=== PATIENT | male | born 1970 | race Caucasian/White ===

== ENCOUNTER 2020-01-04 17:07 | Emergency (ER) | payer OTHER, SELFPAY ==
[2020-01-04 17:35] VITALS: BP 128/76; BP 147/101; PULSE 102; PULSE 107; RESP 20; TEMP 37.6; O2SAT 98; BMI 25.8
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
[2020-01-04 18:56] VITALS: BP 116/57; PULSE 83; RESP 16; TEMP 36.9; O2SAT 99
[2020-01-04 20:00] VITALS: BP 118/83; PULSE 74; RESP 16; TEMP 37; O2SAT 99
--- NOTE | 2020-01-04 20:25 | PC.NURSE ---
PT GIVEN SANDWICH IN NAD AT THIS TIME. PENDING D.C HOME
--- NOTE | 2020-01-04 20:33 | PC.NURSE ---
PT TO BE D/C
== END 2020-01-04 20:49 | disposition home or self-care (01) ==
PROVIDERS: Emergency Provider Emergency Medicine; PCP Internal Medicine
DX: T50.901A Poisoning by unspecified drugs, medicaments and biological substances, accidental (unintentional), initial encounter (principal); Y92.59 Other trade areas as the place of occurrence of the external cause
CPT/HCPCS: 99283; 99284

== ENCOUNTER 2020-08-27 18:08 | Emergency (ER) | payer OTHER, SELFPAY ==
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
[2020-08-27 18:16] VITALS: BP 135/87; PULSE 107; RESP 16; TEMP 37; O2SAT 98; BMI 25.8
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
[2020-08-27] MEDS: iohexoL 350 MG/ML 100 ML INFUS..BTL IV (18:40)
[2020-08-27] MEDS: 0.9 % Sodium Chloride 1,000 ML 999 ML IVCONT (18:42)
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
[2020-08-27] MEDS: ondansetron HCL 4 MG/2 ML VIAL IVPUSH (18:45)
[2020-08-27] MEDS: Morphine Sulfate 4 MG/ML CARTRIDGE IVPUSH (18:45)
== END 2020-08-27 19:00 | disposition short-term general hospital (02) ==
PROVIDERS: Emergency Provider Internal Medicine; PCP Internal Medicine
DX: S31.611A Laceration without foreign body of abdominal wall, left upper quadrant with penetration into peritoneal cavity, initial encounter (principal); S22.32XA Fracture of one rib, left side, initial encounter for closed fracture; X99.1XXA Assault by knife, initial encounter; Y93.9 Activity, unspecified; Y92.414 Local residential or business street as the place of occurrence of the external cause; Y99.9 Unspecified external cause status
CPT/HCPCS: 12002; 71045; 71260; 74177; 96361; 96374; 96375; 99282; 99291; J2270; J2405; Q9967

== ENCOUNTER 2020-12-10 15:54 | Emergency (ER) | payer OTHER, SELFPAY ==
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
[2020-12-10 16:53] VITALS: BP 121/66; PULSE 107; RESP 20; TEMP 37; O2SAT 96; BMI 25.8
[2020-12-10] MEDS: Acetaminophen 325 MG TABLET 650 MG PO (17:01)
[2020-12-10 21:21] LABS: MANUAL DIFF FLAG NO
[2020-12-10 21:32] LABS: Basophils Absolute Auto 0.1 X10*3/uL (0.0-0.2); Basophils Percent Auto 0.4 % (0-2); Eosinophils Absolute Auto 0.1 X10*3/uL (0.0-0.4); Eosinophils Percent Auto 0.3 % (0-4); Hemoglobin 16.9 g/dl (14.0-18.0); Imm Gran Pct Auto 0.5 % (0.0-0.4); Lymphocytes Absolute Auto 3.1 X10*3/uL (1.2-4.9); Mean Corpuscular HGB Conc 33.8 g/dl (31.0-36.0); Mean Corpuscular Hemoglobin 28.5 pg (27.0-33.0); Mean Corpuscular Volume 84.2 fL (80-98); Monocytes Absolute Auto 1.3 X10*3/uL (0.1-1.2); Monocytes Percent Auto 6.8 % (2-11); Neutrophils Absolute Auto 14.5 X10*3/uL (2.0-8.3); Platelet Count 358 X10*3/uL (160-400); Red Blood Count 5.94 X10*6/uL (4.60-5.80); Red Cell Distribution Width 15.7 % (11.0-16.0); White Blood Count 19.1 X10*3/uL (4.8-10.8)
[2020-12-10 21:46] LABS: Alanine Aminotransferase 31 U/L (0-40); Alkaline Phosphatase 82 U/L (39-117); Anion Gap 14 (12-20); Aspartate Amino Transferase 20 U/L (5-37); Bilirubin Total 1.5 mg/dL (0.0-1.0); Blood Urea Nitrogen 24 mg/dL (9-16); Calcium 9.7 mg/dL (8.4-10.2); Carbon Dioxide 26 mmol/L (22-29); Chloride 103 mmol/L (96-108); Creatinine Clr Calc Pharmacy 66.2; Estimated Glomerular Filt Rate 59; Glucose Random 89 mg/dL (60-115); Potassium 4.2 mmol/L (3.3-5.1); Sodium 139 mmol/L (135-145); Total Protein 6.9 g/dL (6.5-8.0)
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
[2020-12-10] MEDS: iohexoL 350 MG/ML 100 ML INFUS..BTL IV (22:29)
[2020-12-10] MEDS: Famotidine/PF 20 MG/2 ML VIAL IVPUSH (22:31)
[2020-12-10] MEDS: diphenhydrAMINE HCL 50 MG/ML VIAL IVPUSH (22:31)
[2020-12-10] MEDS: methylPREDNISolone Sod Succ 125 MG/2 ML VIAL IVPUSH (22:31)
--- NOTE | 2020-12-10 22:43 | PC.NURSE ---
pt had reaction from IV contrast medication order pt placed on O2 monitor and will be moved to main ed for epi. .
[2020-12-10 22:48] VITALS: BP 130/68; PULSE 78; RESP 16; O2SAT 98
[2020-12-10 22:56] VITALS: BP 146/93; PULSE 79; RESP 18; TEMP 36.6; O2SAT 98
[2020-12-10] MEDS: EPINEPHrine 1 MG/ML VIAL 0.3 MG IM (22:56)
--- NOTE | 2020-12-10 23:04 | PC.NURSE ---
PT MOVED TO MAIN ED TO BE GIVEN EPI-PEN PT PLACED ON MONITOR REPORT GIVEN TO ARTURO MONET.
[2020-12-10] MEDS: oxyCODONE HCl Immed Release 5 MG TABLET PO (23:51)
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
[2020-12-11 00:15] LABS: Appearance Urine CLEAR; Color Urine YELLOW; Glucose Urine UA NEG (NEG); Leukocyte Esterase Urine NEG (NEG); Nitrite Urine NEG (NEG); UACC Culture Trigger NO; Urine Blood TRACE (NEG); Urine Ketones NEG (NEG); Urine Protein NEG (NEG-TRACE)
[2020-12-11 00:20] VITALS: BP 129/72; PULSE 80; RESP 16; O2SAT 92
[2020-12-11 00:28] LABS: Bacteria Urine 1+ /LPF; Calcium Oxalate Crystals Urine 1+ /LPF; Squamous Epithelial Cell Urine 1+ /LPF
[2020-12-11 01:59] VITALS: BP 143/79; PULSE 78; RESP 20; TEMP 36.7; O2SAT 97
== END 2020-12-11 02:32 | disposition home or self-care (01) ==
PROVIDERS: Physician Assistant; Emergency Provider Emergency Medicine Emergency Medical Services; PCP Internal Medicine
DX: S10.0XXA Contusion of throat, initial encounter (principal); M54.2 Cervicalgia; G44.309 Post-traumatic headache, unspecified, not intractable; M79.642 Pain in left hand; R07.81 Pleurodynia; F11.90 Opioid use, unspecified, uncomplicated; Y04.8XXA Assault by other bodily force, initial encounter; Y93.9 Activity, unspecified; Y92.9 Unspecified place or not applicable; Y99.9 Unspecified external cause status; Z79.899 Other long term (current) drug therapy
CPT/HCPCS: 36415; 70450; 70498; 71101; 73110; 73130; 80053; 81001; 85025; 96372; 96374; 96375; 99284; J0171; J1200; J2930; Q9967

== ENCOUNTER 2020-12-11 08:21 | Inpatient (IN) | payer OTHER, SELFPAY ==
[2020-12-11 08:22] VITALS: BP 142/89; PULSE 70; RESP 18; TEMP 36.6; O2SAT 99; BMI 25.8
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
[2020-12-11 09:20] LABS: COVID-19 Test Negative (Negative); IDNOW Serial# 9DD0AD1C
[2020-12-11 09:30] LABS: MANUAL DIFF FLAG NO
[2020-12-11 09:38] LABS: Appearance Urine CLEAR; Color Urine YELLOW; Glucose Urine UA NEG (NEG); Leukocyte Esterase Urine NEG (NEG); Nitrite Urine NEG (NEG); Specific Gravity - Urine 1.025 (1.005-1.025); UACC Culture Trigger NO; Urine Blood TRACE (NEG); Urine Ketones NEG (NEG); Urine Protein TRACE MG/DL (NEG-TRACE)
[2020-12-11 09:41] LABS: Basophils Percent Auto 0.1 % (0-2); Hematocrit 51.6 % (42-52); Hemoglobin 17.1 g/dl (14.0-18.0); Imm Gran Abs Auto 0.06 X10*3/uL (0.00-0.03); Imm Gran Pct Auto 0.4 % (0.0-0.4); Lymphocytes Absolute Auto 1.1 X10*3/uL (1.2-4.9); Lymphocytes Percent Auto 8.1 % (20-40); Mean Corpuscular HGB Conc 33.1 g/dl (31.0-36.0); Mean Corpuscular Hemoglobin 28.2 pg (27.0-33.0); Mean Platelet Volume 9.6 fL (9.4-12.4); Monocytes Absolute Auto 0.2 X10*3/uL (0.1-1.2); Monocytes Percent Auto 1.6 % (2-11); Neutrophils Absolute Auto 12.6 X10*3/uL (2.0-8.3); Neutrophils Percent Auto 89.8 % (45-73); Platelet Count 355 X10*3/uL (160-400); Red Blood Count 6.07 X10*6/uL (4.60-5.80); Red Cell Distribution Width 15.8 % (11.0-16.0)
[2020-12-11 09:42] LABS: Ethanol < 10 mg/dL
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
[2020-12-11 09:45] LABS: Mucus Urine TRACE /LPF
[2020-12-11 09:46] LABS: Alanine Aminotransferase 29 U/L (0-40); Albumin Level 4.3 g/dL (3.5-5.0); Alkaline Phosphatase 88 U/L (39-117); Anion Gap 11 (12-20); Aspartate Amino Transferase 12 U/L (5-37); Bilirubin Direct 0.3 mg/dL (0.0-0.5); Bilirubin Total 0.8 mg/dL (0.0-1.0); Blood Urea Nitrogen 22 mg/dL (9-16); Calcium 10.2 mg/dL (8.4-10.2); Carbon Dioxide 29 mmol/L (22-29); Chloride 103 mmol/L (96-108); Creatinine Clr Calc Pharmacy 63.8; Estimated Glomerular Filt Rate 56; Glucose Random 147 mg/dL (60-115); Potassium 5.4 mmol/L (3.3-5.1); Sodium 138 mmol/L (135-145); Total Protein 7.3 g/dL (6.5-8.0)
[2020-12-11 09:48] LABS: RBC Urine 0-2 /HPF (0); WBC Urine 0 /HPF (0-4)
[2020-12-11 10:03] LABS: Amphetamine Screen Urine Not Detected (Not Detect); Barbiturates, Urine Not Detected (Not Detect); Benzodiazepines Screen Urine Not Detected (Not Detect); Cannabinoid Screen Urine Not Detected (Not Detect); Cocaine Screen Urine POSITIVE (Not Detect); Opiate Screen Urine Not Detected (Not Detect); Phencyclidine Screen Urine Not Detected (Not Detect)
[2020-12-11 10:05] LABS: Fentanyl, urine Not Detected (Not Detect)
[2020-12-11] MEDS: Ibuprofen 600 MG TABLET PO (11:55)
--- NOTE | 2020-12-11 12:52 | PHA.MEDREC ---
Pharmacy Consult ? Medication Reconciliation Pharmacy has completed the medication reconciliation. Patient report taking clonidne and trazodone as needed, there is no recent filled history. He was prescribe diphenhydramine, famotidine, prednisone and naproxen here in the ED Mai Hemphill, LiviaD
[2020-12-11 13:14] VITALS: PULSE 72; RESP 16; O2SAT 95
[2020-12-11 23:38] VITALS: BP 129/75; PULSE 93; RESP 18; TEMP 36.9; O2SAT 98
[2020-12-12 05:15] VITALS: BP 171/96; PULSE 85; RESP 18; TEMP 36.1; O2SAT 97
[2020-12-12 06:00] VITALS: BP 171/96; PULSE 85; RESP 18; TEMP 36.1; O2SAT 97
[2020-12-12 06:21] VITALS: BMI 24.3
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
[2020-12-12 07:00] VITALS: BMI 24.3
[2020-12-12 09:30] VITALS: BP 140/86; PULSE 88; RESP 16; TEMP 37; O2SAT 97
--- NOTE | 2020-12-12 14:03 | P.PNPSI_ITS ---
Subjective Subjective Date of Service: 12/12/20 Reason For Visit: crisis Diagnostics Vital Signs (24Hr): Vital Signs - 24 hr 12/11/20 23:38 12/12/20 05:15 12/12/20 06:00 Temperature 98.4 F 96.9 F 96.9 F Pulse Rate 93 85 85 Respiratory Rate 18 18 18 Blood Pressure 129/75 171/96 H 171/96 H Pulse Oximetry 98 97 97 12/12/20 09:30 Temperature 98.6 F Pulse Rate 88 Respiratory Rate 16 Blood Pressure 140/86 H Pulse Oximetry 97 Body Mass Index 24.3 Labs Results: 12/11/20 09:26 12/11/20 09:26 Labs: Laboratory Results - last 48 hr 12/11/20 12/11/20 12/11/20 08:59 09:26 09:26 WBC 14.0 H RBC 6.07 H Hgb 17.1 Hct 51.6 MCV 85.0 MCH 28.2 MCHC 33.1 RDW 15.8 Plt Count 355 MPV 9.6 Immature Gran % (Auto) 0.4 Neut % (Auto) 89.8 H Lymph % (Auto) 8.1 L [place] % (Auto) 1.6 L Eos % (Auto) 0.0 Baso % (Auto) 0.1 Lymph # (Auto) 1.1 L [place] # (Auto) 0.2 Eos # (Auto) 0.0 Baso # (Auto) 0.0 Abs Immat Gran (auto) 0.06 H Absolute Neuts (auto) 12.6 H Absolute Nucleated RBC 0.000 Nucleated RBC % (auto) 0.0 Sodium 138 Potassium 5.4 H D Chloride 103 Carbon Dioxide 29 Anion Gap 11 L BUN 22 H Creatinine 1.34 Estim Creat Clear Calc 63.8 Estimated GFR 56 Random Glucose 147 H D Calcium 10.2 Total Bilirubin 0.8 Direct Bilirubin 0.3 AST 12 ALT 29 Alkaline Phosphatase 88 Total Protein 7.3 Albumin 4.3 Urine Color Urine Appearance Urine pH Ur Specific [place] Urine Protein Urine Glucose (UA) Urine Ketones Urine Blood Urine Nitrite Ur Leukocyte Esterase Urine RBC Urine WBC Ur Squamous Epith Cells Urine Bacteria Urine Mucus Urine Opiates Screen Urine Fentanyl Screen Ur Barbiturates Screen Ur Phencyclidine Scrn Ur Amphetamines Screen U Benzodiazepines Scrn Urine Cocaine Screen U Marijuana (THC) Screen Ethyl Alcohol COVID-19 ([facility]) Negative COVID-19 Clin Com See Note 12/11/20 12/11/20 12/11/20 09:26 09:32 09:32 WBC RBC Hgb Hct MCV MCH MCHC RDW Plt Count MPV Immature Gran % (Auto) Neut % (Auto) Lymph % (Auto) [place] % (Auto) Eos % (Auto) Baso % (Auto) Lymph # (Auto) [place] # (Auto) Eos # (Auto) Baso # (Auto) Abs Immat Gran (auto) Absolute Neuts (auto) Absolute Nucleated RBC Nucleated RBC % (auto) Sodium Potassium Chloride Carbon Dioxide Anion Gap BUN Creatinine Estim Creat Clear Calc Estimated GFR Random Glucose Calcium Total Bilirubin Direct Bilirubin AST ALT Alkaline Phosphatase Total Protein Albumin Urine Color YELLOW Urine Appearance CLEAR Urine pH 6.0 Ur Specific [place] 1.025 Urine Protein TRACE Urine Glucose (UA) NEG Urine Ketones NEG Urine Blood TRACE Urine Nitrite NEG Ur Leukocyte Esterase NEG Urine RBC 0-2 Urine WBC 0 Ur Squamous Epith Cells NONE Urine Bacteria NONE Urine Mucus TRACE Urine Opiates Screen Not Detected Urine Fentanyl Screen Not Detected Ur Barbiturates Screen Not Detected Ur Phencyclidine Scrn Not Detected Ur Amphetamines Screen Not Detected U Benzodiazepines Scrn Not Detected Urine Cocaine Screen POSITIVE H U Marijuana (THC) Screen Not Detected Ethyl Alcohol < 10 COVID-19 ([facility]) COVID-19 Clin Com Medications Medications Current Medications Acetaminophen (Acetaminophen 325 Mg Tablet) 650 mg PO Q6H PRN PRN Reason: Headache/Pain Mild Scale (1-3) Al Hydroxide/Mg Hydroxide (Magnesium Hydrox/Alum Hydrox 30 Ml Oral.Susp) 30 ml PO Q6H PRN PRN Reason: Heartburn/Nausea Clonidine HCl (Clonidine Hcl 0.1 Mg Tablet) 0.1 mg PO TID PRN; Protocol PRN Reason: Anxiety Famotidine (Famotidine 20 Mg Tablet) 20 mg PO BID [facility] Last Admin: 12/12/20 08:40 Dose: Not Given Documented by: Magnesium Hydroxide (Milk Of Magnesia 30 Ml Oral.Susp) 30 ml PO DAILY PRN PRN Reason: Constipation Naproxen (Naproxen 500 Mg Tablet) 500 mg PO BID PRN PRN Reason: pain Nicotine Polacrilex (Nicotine Polacrilex 2 Mg Gum) 4 mg BUCCAL Q2H PRN PRN Reason: Nicotine Cravings Prednisone (Prednisone 20 Mg Tablet) 40 mg PO DAILY [facility] Last Admin: 12/12/20 08:40 Dose: Not Given Documented by: Trazodone HCl (Trazodone Hcl 50 Mg Tablet) 50 mg PO BEDTIME PRN PRN Reason: Insomnia Trazodone HCl (Trazodone Hcl 50 Mg Tablet) 50 mg PO BEDTIME PRN PRN Reason: Insomnia Allergies Allergies Allergy/AdvReac Type Severity Reaction Status Date / Time No Known Allergies Allergy Verified 08/27/20 18:13 Assessment & Plan Greater than 50% of the session was spent on counseling and/or coordination of care
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
[2020-12-12 16:04] VITALS: BP 134/106; PULSE 81; RESP 20; TEMP 36.4; O2SAT 99
[2020-12-12 16:08] VITALS: BP 134/106; PULSE 81
[2020-12-12] MEDS: cloNIDine HCL 0.1 MG TABLET PO (16:08)
[2020-12-12] MEDS: NaPROXEN 500 MG TABLET PO (16:09)
[2020-12-12] MEDS: Gabapentin 100 MG CAPSULE PO ×2 (17:21→20:22)
[2020-12-12] MEDS: Famotidine 20 MG TABLET PO (20:22)
[2020-12-12] MEDS: traZODone HCL 50 MG TABLET PO (20:22)
--- NOTE | 2020-12-13 | ECG_ITS ---
Test Reason : cocaine Blood Pressure : / mmHG Vent. Rate : 082 BPM Atrial Rate : 082 BPM P-R Int : 140 ms QRS Dur : 086 ms QT Int : 352 ms P-R-T Axes : 071 014 014 degrees QTc Int : 411 ms Normal sinus rhythm Normal ECG No previous ECGs available Referred By: Jesse Smith Electronically Signed By:ANTONIA STUART
[2020-12-13 06:00] VITALS: BP 154/80; PULSE 71; RESP 18; TEMP 36.1; O2SAT 97
[2020-12-13] MEDS: Gabapentin 100 MG CAPSULE PO (09:08)
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
[2020-12-13 10:26] VITALS: BP 133/84; PULSE 86
[2020-12-13] MEDS: cloNIDine HCL 0.1 MG TABLET PO (10:26)
[2020-12-13 10:29] LABS: MANUAL DIFF FLAG NO
[2020-12-13 10:31] LABS: Basophils Absolute Auto 0.1 X10*3/uL (0.0-0.2); Basophils Percent Auto 0.6 % (0-2); Eosinophils Absolute Auto 0.1 X10*3/uL (0.0-0.4); Eosinophils Percent Auto 1.4 % (0-4); Hematocrit 47.1 % (42-52); Hemoglobin 15.4 g/dl (14.0-18.0); Lymphocytes Percent Auto 30.6 % (20-40); Mean Corpuscular HGB Conc 32.7 g/dl (31.0-36.0); Mean Corpuscular Hemoglobin 28.3 pg (27.0-33.0); Mean Corpuscular Volume 86.6 fL (80-98); Mean Platelet Volume 9.8 fL (9.4-12.4); Monocytes Absolute Auto 0.9 X10*3/uL (0.1-1.2); Monocytes Percent Auto 9.3 % (2-11); Neutrophils Absolute Auto 5.5 X10*3/uL (2.0-8.3); Neutrophils Percent Auto 57.1 % (45-73); Platelet Count 321 X10*3/uL (160-400); Red Blood Count 5.44 X10*6/uL (4.60-5.80); Red Cell Distribution Width 15.8 % (11.0-16.0); White Blood Count 9.7 X10*3/uL (4.8-10.8)
[2020-12-13 10:51] LABS: Anion Gap 11 (12-20); Carbon Dioxide 29 mmol/L (22-29); Chloride 108 mmol/L (96-108); Potassium 4.5 mmol/L (3.3-5.1); Sodium 143 mmol/L (135-145)
[2020-12-13] MEDS: traMADoL HCL 50 MG TABLET 25 MG PO ×2 (12:27→21:15)
[2020-12-13] MEDS: FLUoxetine HCl 10 MG CAPSULE PO (13:16)
[2020-12-13] MEDS: Gabapentin 300 MG CAPSULE PO ×2 (14:13→21:05)
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
[2020-12-13 18:00] VITALS: BP 138/74; PULSE 68; RESP 18; O2SAT 99
[2020-12-13] MEDS: traZODone HCL 50 MG TABLET PO (21:14)
[2020-12-14] MEDS: traMADoL HCL 50 MG TABLET 25 MG PO ×3 (05:28→21:01)
[2020-12-14 06:00] VITALS: BP 153/90; PULSE 69; TEMP 36.5; O2SAT 97
[2020-12-14 08:18] VITALS: BP 153/90; PULSE 69
[2020-12-14] MEDS: cloNIDine HCL 0.1 MG TABLET PO ×2 (08:18→16:11)
[2020-12-14] MEDS: Gabapentin 300 MG CAPSULE PO ×3 (08:18→20:57)
[2020-12-14] MEDS: FLUoxetine HCl 10 MG CAPSULE PO (08:18)
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
[2020-12-14 16:11] VITALS: BP 100/86; PULSE 68
[2020-12-14 18:00] VITALS: BP 138/88; PULSE 66; RESP 18; TEMP 36.7; O2SAT 99
[2020-12-14] MEDS: traZODone HCL 50 MG TABLET PO (21:45)
[2020-12-15] MEDS: traMADoL HCL 50 MG TABLET 25 MG PO ×3 (04:39→20:16)
[2020-12-15 06:00] VITALS: BP 152/82; PULSE 90; TEMP 37; O2SAT 94
[2020-12-15] MEDS: Gabapentin 300 MG CAPSULE PO ×3 (08:26→20:16)
[2020-12-15] MEDS: FLUoxetine HCl 10 MG CAPSULE PO (08:26)
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
[2020-12-15 16:36] VITALS: BP 130/86; PULSE 80
[2020-12-15] MEDS: cloNIDine HCL 0.1 MG TABLET PO (16:36)
[2020-12-15] MEDS: NaPROXEN 500 MG TABLET PO (18:43)
[2020-12-15] MEDS: traZODone HCL 25 MG HALFTAB 75 MG PO (20:15)
[2020-12-15] MEDS: traZODone HCL 50 MG TABLET PO (23:10)
[2020-12-16 06:00] VITALS: BP 125/81; PULSE 97; TEMP 36.4; O2SAT 96
[2020-12-16] MEDS: Gabapentin 300 MG CAPSULE PO ×3 (08:53→21:09)
[2020-12-16] MEDS: FLUoxetine HCl 10 MG CAPSULE PO (08:53)
[2020-12-16] MEDS: traMADoL HCL 50 MG TABLET 25 MG PO ×2 (08:57→16:34)
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
[2020-12-16 17:38] VITALS: BP 138/96; PULSE 88; TEMP 36.6; O2SAT 98
[2020-12-16] MEDS: traZODone HCL 25 MG HALFTAB 75 MG PO (21:09)
[2020-12-17] MEDS: traZODone HCL 50 MG TABLET PO (00:16)
[2020-12-17 06:00] VITALS: BP 129/74; PULSE 76; RESP 18; TEMP 35.6; O2SAT 98
[2020-12-17] MEDS: Gabapentin 300 MG CAPSULE PO ×4 (08:49→22:31)
[2020-12-17] MEDS: FLUoxetine HCl 10 MG CAPSULE PO (08:49)
[2020-12-17] MEDS: traMADoL HCL 50 MG TABLET 25 MG PO ×3 (11:21→22:31)
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
[2020-12-17 18:57] VITALS: BP 148/79; PULSE 78; TEMP 36.4; O2SAT 95
[2020-12-17] MEDS: traZODone HCL 25 MG HALFTAB 75 MG PO (22:30)
[2020-12-18 06:00] VITALS: BP 130/71; PULSE 69; TEMP 36.6; O2SAT 98
[2020-12-18] MEDS: Gabapentin 300 MG CAPSULE PO (08:42)
[2020-12-18] MEDS: FLUoxetine HCl 10 MG CAPSULE PO (08:42)
[2020-12-18] MEDS: traMADoL HCL 50 MG TABLET 25 MG PO (08:46)
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
== END 2020-12-18 14:33 | disposition home or self-care (01) | DRG 751 ==
LOC: HO.ED 12-12 06:02 → HO.PM5 12-12 06:06
PROVIDERS: Physician Assistant; Admitting Provider Psychiatry & Neurology Psychiatry; Emergency Provider Emergency Medicine; PCP Internal Medicine; Visit Provider Social Worker
DX: F33.1 Major depressive disorder, recurrent, moderate (principal); R45.851 Suicidal ideations; F43.10 Post-traumatic stress disorder, unspecified; F17.210 Nicotine dependence, cigarettes, uncomplicated; Z91.5 Personal history of self-harm; Z20.822 Contact with and (suspected) exposure to COVID-19; Z71.6 Tobacco abuse counseling; Z79.1 Long term (current) use of non-steroidal anti-inflammatories (NSAID); Z79.899 Other long term (current) drug therapy
CPT/HCPCS: 36415; 80048; 80051; 80076; 80307; 81001; 82077; 85025; 87635; 93005; 99285

== ENCOUNTER 2022-02-26 11:40 | Inpatient (IN) | payer OTHER, SELFPAY ==
[2022-02-26 12:08] VITALS: BP 137/73; PULSE 95; RESP 18; TEMP 36.8; O2SAT 98; BMI 25.8
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
[2022-02-26 12:11] VITALS: RESP 16
--- NOTE | 2022-02-26 12:11 | ECG_ITS ---
Test Reason : reported cocaine use Blood Pressure : / mmHG Vent. Rate : 064 BPM Atrial Rate : 064 BPM P-R Int : 144 ms QRS Dur : 090 ms QT Int : 406 ms P-R-T Axes : 049 004 -01 degrees QTc Int : 418 ms Normal sinus rhythm Normal ECG When compared with ECG of 13-DEC-2020 10:33, No significant change was found Referred By: Fadia Epperson Electronically Signed By:EMMANUEL MCKEON MD
[2022-02-26 12:24] LABS: MANUAL DIFF FLAG NO
[2022-02-26 12:28] LABS: Appearance Urine Clear; Color Urine Yellow; Glucose Urine UA Negative (Negative); Leukocyte Esterase Urine Negative (Negative); Nitrite Urine Negative (Negative); PH 6.5 (5.0-9.0); Urine Blood Negative (Negative); Urine Ketones Trace mg/dL (Negative); Urine Protein Negative (Neg-Trace)
[2022-02-26 12:30] LABS: Basophils Absolute Auto 0.1 X10*3/uL (0.0-0.2); Basophils Percent Auto 0.9 % (0-2); Eosinophils Absolute Auto 0.2 X10*3/uL (0.0-0.4); Eosinophils Percent Auto 2.3 % (0-4); Hematocrit 50.2 % (42.0-52.0); Hemoglobin 16.4 g/dl (14.0-18.0); Imm Gran Abs Auto 0.03 X10*3/uL (0.00-0.03); Imm Gran Pct Auto 0.3 % (0.0-0.4); Lymphocytes Absolute Auto 2.4 X10*3/uL (1.2-4.9); Lymphocytes Percent Auto 27.6 % (20-40); Mean Corpuscular HGB Conc 32.7 g/dl (31.0-36.0); Mean Corpuscular Hemoglobin 27.8 pg (27.0-33.0); Mean Corpuscular Volume 85.2 fL (80.0-98.0); Mean Platelet Volume 9.6 fL (9.4-12.4); Monocytes Absolute Auto 0.6 X10*3/uL (0.1-1.2); Monocytes Percent Auto 6.3 % (2-11); Neutrophils Absolute Auto 5.5 x10*3/uL (2.0-8.3); Neutrophils Percent Auto 62.6 % (45-73); Platelet Count 409 X10*3/uL (160-400); Red Blood Count 5.89 X10*6/uL (4.60-5.80); Red Cell Distribution Width 15.5 % (11.0-16.0); White Blood Count 8.8 X10*3/uL (4.8-10.8)
[2022-02-26 12:37] LABS: Amphetamine Screen Urine Not Detected (Not Detect); Barbiturates, Urine Not Detected (Not Detect); Benzodiazepines Screen Urine Not Detected (Not Detect); Cannabinoid Screen Urine Not Detected (Not Detect); Cocaine Screen Urine POSITIVE (Not Detect); Fentanyl, urine Not Detected (Not Detect); Opiate Screen Urine Not Detected (Not Detect); Phencyclidine Screen Urine Not Detected (Not Detect)
[2022-02-26 12:43] LABS: Alanine Aminotransferase 11 U/L (0-40); Albumin Level 3.9 g/dL (3.5-5.0); Alkaline Phosphatase 82 U/L (39-117); Anion Gap 10 (12-20); Aspartate Amino Transferase 6 U/L (5-37); Bilirubin Total 0.7 mg/dL (0.0-1.0); Blood Urea Nitrogen 15 mg/dL (9-16); Calcium 9.7 mg/dL (8.4-10.2); Carbon Dioxide 31 mmol/L (22-29); Chloride 108 mmol/L (96-108); Creatinine Clr Calc Pharmacy 72.2; Estimated Glomerular Filt Rate > 60; Glucose Random 89 mg/dL (60-115); Magnesium 2.3 mg/dL (1.6-2.6); Potassium 5.2 mmol/L (3.3-5.1); Sodium 144 mmol/L (135-145); Total Protein 6.4 g/dL (6.5-8.0)
[2022-02-26 13:08] LABS: Ethanol < 10 mg/dL; Influenza A PCR NEGATIVE (Negative); Influenza B PCR NEGATIVE (Negative); Resp Syncy Virus RNA Qual PCR NEGATIVE (Negative); SARS COV2 PCR INHOUSE NEGATIVE (Negative)
[2022-02-26] MEDS: Sodium Polystyrene Sulfon/Sorb 15 GM/60 ML ORAL.SUSP 30 GM PO (13:21)
--- OUTSIDE RECORDS SUMMARY | 2022-02-26 13:51 | XMS_ITS | Continuity of Care Document ---
:1970 Author Organization [facility] Address [address] [place] [address]- Care Team Providers Name Role Phone Yun Ma MD [id number]): [facility]13[facility] - 01/20/21 [facility] [address] [place] [address]- Encounter Diagnosis TMJ pain dysfunction syndrome (Discharge Diagnosis) - 01/13/21 Chronic pain (Discharge Diagnosis) - 01/13/21 Attending Physician: Carlos Manuel Winkler MD Allergies, Adverse Reactions, Alerts No Known Medication Allergies Substance Reaction Severity Status NKA Active Medications gabapentin 100 mg oral capsule 100 mg, 1, capsule, By Mouth, 3 times a day, # 90 capsule, Refills 0, Tot. Refills 0, Maintenance, 08/29/20 11:22:00 EDT, Route to Pharmacy Electronically, [facility], Partial fill upon patient request if the prescription is for a schedu... Start Date: 08/29/20 Status: Orderedgabapentin 300 mg oral capsule 300 mg, 1, capsule, By Mouth, 3 times a day, # 12 capsule, Refills 0, Tot. Refills 0, Maintenance, 01/13/21 9:36:00 EDT, Print Requisition, Partial fill upon patient request if the prescription is for a schedule II opioid drug. Start Date: 01/13/21 Stop Date: 01/17/21 Status: Orderedgabapentin 300 mg oral capsule 300 mg, 1, capsule, By Mouth, 3 times a day, # 90 capsule, Refills 0, Tot. Refills 0, Maintenance, 12/06/20 20:24:00 EDT, Route to Pharmacy Electronically, [id number], Partial fill upon patient request if the prescription is for a camilo... Start Date: 12/06/20 Status: Orderedibuprofen 600 mg oral tablet 600 mg, 1, tablet, By Mouth, 4 times a day, for 14 days, # 56 tablet, Refills 0, Tot. Refills 0, Acute 01/27/21 9:37:00 EST, 01/13/21 9:37:00 EDT, Print Requisition, Partial fill upon patient request if the prescription is for a schedule II opioid drug. Start Date: 01/13/21 Stop Date: 01/27/21 Status: Orderedlidocaine 5% topical film 1 patch, Topically, Daily, PRN Pain , Mild, remove after 12 hours, # 30 patch, 0 Refills, Maintenance, 12/06/20 20:25:00 EDT, Film, [id number], Partial fill upon patient request if theprescription is for a schedule II opioid drug., 1... Start Date: 12/06/20 Stop Date: 12/20/20 Status: OrderedRemeron 15 mg oral tablet = 15 mg, By Mouth, Daily at bedtime, PRN Insomnia, # 30 tablet, 0 Refills, Maintenance, 10/25/18 17:53:11 EDT, Tablet Start Date: 10/25/18 Status: Ordered Problem List Diagnosis Diagnosis Type Effective Dates Health Clinical Infor [facility] Status Service TMJ pain Discharge 01/13/21 dysfunction Diagnosis syndrome Chronic pain Discharge 01/13/21 Diagnosis Vital Signs Most recent to oldest [Reference Range]: 1 Height 172 cm (01/13/21 9:08 AM) Oxygen Saturation [94-100 %] 98 % (01/13/21 9:08 AM) Pulse Rate [55-90 bpm] 108 bpm *H* (01/13/21 9:08 AM) Blood Pressure [90-138/55-84 mm Hg] 164/88 mm Hg *H* (01/13/21 9:08 AM) Temperature [96.8-100.4 DegF] 97.7 DegF (01/13/21 9:08 AM) Mode of Delivery (Oxygen) Room air (01/13/21 9:08 AM) Blood pressure sites Arm, right (01/13/21 9:08 AM) Temperature Route Temporal (01/13/21 9:08 AM)
--- OUTSIDE RECORDS SUMMARY | 2022-02-26 13:51 | XMS_ITS | Continuity of Care Document ---
:1970 Author Organization [facility] Address [address] [place] [address]- Care Team Providers Name Role Phone Yun Ma MD Primary Care Phys[id number] Date(s): 12/06/20 - 12/06/[address] [address]- Encounter Diagnosis Chest wall pain (Final) - 12/06/20 Discharge Disposition: A-D/C Home Attending Physician: Martín Bernard MD Admitting Physician: Martín Bernard MD Referring Physician: Not on Staff, Referring MD Allergies, Adverse Reactions, Alerts No Known Medication Allergies Substance Reaction Severity Status NKA Active Medications gabapentin 100 mg oral capsule 100 mg, Capsule, By Mouth, Once, STAT, 12/06/20 18:26:00 EDT, Stop date 12/06/20 18:26:00 EDT Start Date: 12/06/20 Stop Date: 12/06/20 Status: Completedgabapentin 100 mg oral capsule 100 mg, 1, capsule, By Mouth, 3 times a day, # 90 capsule, Refills 0, Tot. Refills 0, Maintenance, 08/29/20 11:22:00 EDT, Route to Pharmacy Electronically, [facility], Partial fill upon patient request if the prescription is for a schedu... Start Date: 08/29/20 Status: Orderedgabapentin 300 mg oral capsule 300 mg, 1, capsule, By Mouth, 3 times a day, # 90 capsule, Refills 0, Tot. Refills 0, Maintenance, 12/06/20 20:24:00 EDT, Route to Pharmacy Electronically, [facility] #[id number], Partial fill upon patient request if the prescription is for a camilo... Start Date: 12/06/20 Status: Orderedlidocaine 5% topical film 1 patch, Topically, Daily, PRN Pain , Mild, remove after 12 hours, # 30 patch, 0 Refills, Maintenance, 12/06/20 20:25:00 EDT, Film, [facility] #[id number], Partial fill upon patient request if theprescription is for a schedule II opioid drug., 1... Start Date: 12/06/20 Stop Date: 12/20/20 Status: OrderedoxyCODONE 5 mg oral tablet 5 mg, Tablet, By Mouth, Once, STAT, 12/06/20 19:52:00 EDT, Stop date 12/06/20 19:52:00 EDT Start Date: 12/06/20 Stop Date: 12/06/20 Status: CompletedRemeron 15 mg oral tablet = 15 mg, By Mouth, Daily at bedtime, PRN Insomnia, # 30 tablet, 0 Refills, Maintenance, 10/25/18 17:53:11 EDT, Tablet Start Date: 10/25/18 Status: Ordered Results Radiology Reports Exam Date Time Procedure Performing Provider Status 12/06/20 6:52 PM Chest 2 Views Frontal and Lat Obed Brand; Au th (Verified) Notes:(Chest 2 Views Frontal and Lat) Reason For Exam: HemoptysisRESULT: Chest 2 Views Frontal and Lat Chest 2 Views Frontal and Lat Hx of Present Illness: pt sts while reaching for something 2 days ago he felt a ripping sensation to his left lateral side. He sts he has been well since his injury howevere since this incident 2 days ago has been coughing blood. He reports his left side feels hard on the; Reason: Hemoptysis; Clinical Question(s): Other: COMPARISON: 09/07/2020 FINDINGS: LINES AND TUBES: None. LUNGS AND PLEURA: Clear lungs. Normal pulmonary vascularity. No pleural effusion. No pneumothorax. HEART, MEDIASTINUM AND JEAN-PAUL: Heart is normal in size. Normal upper mediastinal and hilar contour. BONES AND SOFT TISSUES: No acute abnormality. IMPRESSION: No acute abnormality. WSN: [id number] Ordering Physician: Alize Giordano Dictated By: Xiomara Mills MD Dictated Date/Time: 12/06/20 6:54 pm Reviewed By: Xiomara Mills MD Signed By: Xiomara Mills MD Signed Date/Time: 12/06/20 6:54 pm Transcribed By: MAICO Transcribed Date/Time: 12/06/20 6:53 pm Vital Signs Most recent to oldest 1 2 3 [Reference Range]: Oxygen Saturation [94-100 %] 100 % 100 % (12/06/20 4:36 PM) (12/06/20 4:12 PM) Pulse Rate [55-90 bpm] 78 bpm 89 bpm (12/06/20 4:36 PM) (12/06/20 4:12 PM) Blood Pressure [90-138/55-84 mm 125/86 mm Hg Hg] (12/06/20 4:36 PM) Respiratory Rate [16-30 br/min] 18 br/min 20 br/min 18 br/min (12/06/20 8:30 PM) (12/06/20 8:12 PM) (12/06/20 6:5 6 PM) Temperature [96.8-100.4 DegF] 98.6 DegF (12/06/20 4:36 PM) Mode of Delivery (Oxygen) Room air Room air (12/06/20 4:36 PM) (12/06/20 4:12 PM) Blood pressure sites Arm, right (12/06/20 4:36 PM) Temperature Route Oral (12/06/20 4:36 PM) Weight Obtained Via UTo (12/06/20 4:54 PM) Dry Weight Obtained Via UTO (12/06/20 4:54 PM)
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
--- OUTSIDE RECORDS SUMMARY | 2022-02-26 13:51 | XMS_ITS | Continuity of Care Document ---
:1970 Author Organization [facility] Address [address] [place] [address]- Care Team Providers Name Role Phone Yun Ma MD Primary Care Physician [place] [facility] [place] 02[place]12/21 [facility] [address] [place] [address]- Attending Physician: Marly Leon Admitting Physician: Marly Leon Referring Physician: AdmtrMarly Allergies, Adverse Reactions, Alerts No Known Medication Allergies Substance Reaction Severity Status NKA Active Medications gabapentin 100 mg oral capsule 100 mg, 1, capsule, By Mouth, 3 times a day, # 90 capsule, Refills 0, Tot. Refills 0, Maintenance, 08/29/20 11:22:00 EDT, Route to Pharmacy Electronically, [facility], Partial fill upon patient [...] 12/06/20 20:24:00 EDT, Route to Pharmacy Electronically, [id number], Partial fill upon patient request if the prescription is for a camilo... Start Date: 12/06/20 Status: Orderedlidocaine 5% topical film 1 patch, Topically, Daily, PRN Pain , Mild, remove after 12 hours, # 30 patch, 0 Refills, Maintenance, 12/06/20 20:25:00 EDT, Film, [facility][id number], Partial fill upon patient request if theprescription is for a schedule II opioid drug., 1... Start Date: 12/06/20 Stop Date: 12/20/20 Status: OrderedRemeron 15 mg oral tablet = 15 mg, By Mouth, Daily at bedtime, PRN Insomnia, # 30 tablet, 0 Refills, Maintenance, 10/25/18 17:53:11 EDT, Tablet Start Date: 10/25/18 Status: Ordered
--- OUTSIDE RECORDS SUMMARY | 2022-02-26 13:51 | XMS_ITS | Continuity of Care Document ---
:1970 Author Organization [facility] Address [address] [place] [address] Drive [address] [place] [id number]- Care Team Providers Name Role Phone Julio, EDMUNDO, Sona Ravi Primary Care Physician En[place] [facility] [place] [facility] [id number] Date(s): 09/17/20 - 10/17/[address] [place] [id number] Attending Physician: Marly Leon Admitting Physician: AdmtrMarly Referring Physician: Admtr, Marly Allergies, Adverse Reactions, Alerts No Known Medication Allergies Substance Reaction Severity Status NKA Active Medications gabapentin 100 mg oral capsule 100 mg, 1, capsule, By Mouth, 3 times a day, # 90 capsule, Refills 0, Tot. Refills 0, Maintenance, 08/29/20 11:22:00 EDT, Route to Pharmacy Electronically, [facility], Partial fill upon patient request if the prescription is for a schedu... Start Date: 08/29/20 Status: OrderedRemeron 15 mg oral tablet = 15 mg, By Mouth, Daily at bedtime, PRN Insomnia, # 30 tablet, 0 Refills, Maintenance, 10/25/18 17:53:11 EDT, Tablet Start Date: 10/25/18 Status: Ordered
--- OUTSIDE RECORDS SUMMARY | 2022-02-26 13:51 | XMS_ITS | Continuity of Care Document ---
:1970 Author Organization [facility] Address [address] [place] [id number]- Care Team Providers Name Role Phone Julio, EDMUNDO, Sona Ravi Primary Care Physician Encounter [facility] [place] Date(s): 08/30/20 - 10/17/[address] [place] [id number] Attending Physician: Ezra STAFFORD, Jack Velez Allergies, Adverse Reactions, Alerts No Known Medication Allergies Substance Reaction Severity Status NKA Active Medications gabapentin 100 mg oral capsule 100 mg, 1, capsule, By Mouth, 3 times a day, # 90 capsule, Refills 0, Tot. Refills 0, Maintenance, 08/29/20 11:22:00 EDT, Route to Pharmacy Electronically, [facility], Partial fill upon patient request if the prescription is for a schedu... Start Date: 08/29/20 Status: OrderedRemeron 15 mg oral tablet = 15 mg, By Mouth, Daily at bedtime, PRN Insomnia, # 30 tablet, 0 Refills, Maintenance, 10/25/18 17:53:11 EDT, Tablet Start Date: 10/25/18 Status: Ordered
--- OUTSIDE RECORDS SUMMARY | 2022-02-26 13:51 | XMS_ITS | Continuity of Care Document ---
:1970 Author Organization [facility] Address [address] [place] [address] Drive [address] [place] [id number]- Care Team Providers Name Role Phone Julio, EDMUNDO, Sona Ravi Primary Care Physician Encounter [facility] [place] Date(s): 09/17/20 - 10/17/[address] [place] [id number] Attending Physician: Marly Leon Admitting Physician: Admtr, Marly Referring Physician: Admtr, ArShamir Allergies, Adverse Reactions, Alerts No Known Medication Allergies Substance Reaction Severity Status NKA Active Medications gabapentin 100 mg oral capsule 100 mg, 1, capsule, By Mouth, 3 times a day, # 90 capsule, Refills 0, Tot. Refills 0, Maintenance, 08/29/20 11:22:00 EDT, Route to Pharmacy Electronically, [facility], Partial fill upon patient request if the prescription is for a schedu... Start Date: 08/29/20 Status: OrderedRemeron 15 mg oral tablet = 15 mg, By Mouth, Daily at bedtime, PRN Insomnia, # 30 tablet, 0 Refills, Maintenance, 10/25/18 17:53:11 EDT, Tablet Start Date: 10/25/18 Status: Ordered
[2022-02-26 17:06] VITALS: BMI 24.2
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
[2022-02-26 17:39] VITALS: BP 118/82; PULSE 95; RESP 16; TEMP 36.4; O2SAT 98
[2022-02-26] MEDS: Gabapentin 300 MG CAPSULE PO (19:41)
[2022-02-26] MEDS: Famotidine 20 MG TABLET PO (19:41)
[2022-02-27 08:24] VITALS: BP 169/113; PULSE 75; RESP 16; TEMP 36.1; O2SAT 98
[2022-02-27 08:53] LABS: Estimated Average Glucose 108 mg/dL; Hemoglobin A1c % 5.4 %
[2022-02-27 09:05] LABS: Potassium 4.3 mmol/L (3.3-5.1)
[2022-02-27 09:11] LABS: Cholesterol 194 mg/dL; HDL Cholesterol 47 mg/dL; LDL Cholesterol Calculated 129 mg/dl; Magnesium 2.3 mg/dL (1.6-2.6); Triglycerides 93 mg/dL
[2022-02-27] MEDS: FLUoxetine HCl 10 MG CAPSULE PO (09:17)
[2022-02-27] MEDS: Gabapentin 300 MG CAPSULE PO ×3 (09:17→21:43)
[2022-02-27 09:40] LABS: Thyroid Stimulating Hormone 0.82 uIU/mL (0.32-4.0)
[2022-02-27 10:19] LABS: Free T4 (Free Thyroxine) 0.85 ng/dL (0.71-1.85)
[2022-02-27 10:20] LABS: Folate 10.4 ng/mL (> or = 4.0); Vitamin B12 957 pg/mL (200-900)
[2022-02-27] MEDS: traMADoL HCL 50 MG TABLET 25 MG PO ×2 (14:36→21:44)
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
[2022-02-27 15:50] VITALS: BP 157/87; PULSE 74; TEMP 36.1
[2022-02-27] MEDS: NaPROXEN 500 MG TABLET PO (15:57)
[2022-02-27] MEDS: QUEtiapine Fumarate 25 MG TABLET PO ×2 (15:57→21:47)
[2022-02-27] MEDS: cloNIDine HCL 0.1 MG TABLET PO (15:57)
[2022-02-27] MEDS: traZODone HCL 50 MG TABLET PO (21:47)
[2022-02-28] MEDS: Multivitamin TABLET 1 TAB PO (08:32)
[2022-02-28] MEDS: FLUoxetine HCl 10 MG CAPSULE PO (08:32)
[2022-02-28] MEDS: Famotidine 20 MG TABLET PO (08:32)
[2022-02-28] MEDS: Gabapentin 300 MG CAPSULE PO ×3 (08:32→20:21)
[2022-02-28] MEDS: traMADoL HCL 50 MG TABLET 25 MG PO ×3 (08:35→20:21)
[2022-02-28 09:00] VITALS: BP 130/89; PULSE 88; RESP 18; TEMP 36.7; O2SAT 97
[2022-02-28] MEDS: QUEtiapine Fumarate 25 MG TABLET PO ×2 (11:20→20:21)
--- NOTE | 2022-02-28 14:34 | P.PNPSI_ITS ---
Subjective Subjective Date of Service: 02/28/22 Reason For Visit: PTSD, recurrent MOD, S/P Suicide attempt in [place] Medical Problems Affecting Mental Status: No Interim History: Overall reports continuing to feel depressed and hopeless. Reports he does not want to be alive and that suicide appears to be his only option. Reports having suicidal thoughts throughout the years, but recently being the 1st time he is acted upon this. Also acknowledged wanting help and hopeful he can feel better. Reports feeling a loss of purpose in the context of separation, losing his job and all of this happening within the last 4-6 weeks. Reports his mom is extremely supportive which she is thankful for. Has also been off medications and hopeful being back on those have been helpful. Sleep okay. Appetite okay. No agitation or psychosis. Medication Compliance: Yes Side effects from medications: No Attending Groups: Intermittent Review of Systems Acute medical concerns: No Review of Systems Review of Systems Unremarkable Mental Status Exam Mental Status Exam Narrative: In bed. Appropriately dressed and fair hygiene. Engaged. Organized. Depressed. Suicidal. No plans or intent. Feeling supported on the unit. No HI. No agitation or psychosis. Insight and judgment okay Diagnostics Vital Signs (24Hr): Vital Signs - 24 hr 02/27/22 15:50 02/28/22 09:00 Temperature 96.9 F 98.1 F Pulse Rate 74 88 Respiratory Rate 18 Blood Pressure 157/87 H 130/89 Pulse Oximetry 97 Oxygen Delivery Method Room Air BMI result Body Mass Index 24.2 Labs Results: 02/26/22 12:18 02/27/22 08:14 Labs: Laboratory Results - last 48 hr 02/27/22 02/27/22 02/27/22 08:14 08:14 08:14 Potassium Estimat Average Glucose 108 Hemoglobin A1c % 5.4 Magnesium 2.3 Triglycerides 93 Cholesterol 194 LDL Cholesterol, Calc 129 HDL Cholesterol 47 Vitamin B12 957 H Folate 10.4 TSH 0.82 Free T4 0.85 02/27/22 08:14 Potassium 4.3 Estimat Average Glucose Hemoglobin A1c % Magnesium Triglycerides Cholesterol LDL Cholesterol, Calc HDL Cholesterol Vitamin B12 Folate TSH Free T4 Medications Medications Current Medications Acetaminophen (Acetaminophen 325 Mg Tablet) 650 mg PO Q6H PRN PRN Reason: Headache/Pain Mild Scale (1-3) Al Hydroxide/Mg Hydroxide (Magnesium Hydrox/Alum Hydrox 30 Ml Oral.Susp) 30 ml PO Q6H PRN PRN Reason: Heartburn/Nausea Baclofen (Baclofen 10 Mg Tablet) 10 mg PO BID PRN PRN Reason: withdrawal Clonidine HCl (Clonidine Hcl 0.1 Mg Tablet) 0.1 mg PO TID PRN; Protocol PRN Reason: Anxiety Last Admin: 02/27/22 15:57 Dose: 0.1 mg Famotidine (Famotidine 20 Mg Tablet) 20 mg PO BID [facility] Last Admin: 02/28/22 08:32 Dose: 20 mg Fluoxetine HCl (Fluoxetine Hcl 10 Mg Capsule) 10 mg PO DAILY [facility] Last Admin: 02/28/22 08:32 Dose: 10 mg Gabapentin (Gabapentin 300 Mg Capsule) 300 mg PO TID [facility] Last Admin: 02/28/22 14:08 Dose: 300 mg Hydroxyzine HCl (Hydroxyzine Hcl 25 Mg Tablet) 25 mg PO Q6H PRN PRN Reason: Anxiety Magnesium Hydroxide (Milk Of Magnesia 30 Ml Oral.Susp) 30 ml PO DAILY PRN PRN Reason: Constipation Multivitamins/Vitamin C (Multivitamin Tablet) 1 tab PO DAILY [facility] Last Admin: 02/28/22 08:32 Dose: 1 tab Naproxen (Naproxen 500 Mg Tablet) 500 mg PO Q12H PRN PRN Reason: Pain, Mild (Pain Scale 1-3) Last Admin: 02/27/22 15:57 Dose: 500 mg Quetiapine Fumarate (Quetiapine Fumarate 25 Mg Tablet) 25 mg PO BEDTIME [facility] Last Admin: 02/27/22 21:47 Dose: 25 mg Quetiapine Fumarate (Quetiapine Fumarate 25 Mg Tablet) 25 mg PO BID PRN PRN Reason: agitation Last Admin: 02/28/22 11:20 Dose: 25 mg Tramadol HCl (Tramadol Hcl 50 Mg Tablet) 25 mg PO Q6H PRN PRN Reason: Pain, Mild (Pain Scale 1-3) Last Admin: 02/28/22 08:35 Dose: 25 mg Trazodone HCl (Trazodone Hcl 50 Mg Tablet) 50 mg PO BEDTIME PRN PRN Reason: Insomnia Last Admin: 02/27/22 21:47 Dose: 50 mg Allergies Allergies Allergy/AdvReac Type Severity Reaction Status Date / Time Iodinated Contrast Media Allergy Intermediate Hives Verified 12/13/20 12:40 Assessment & Plan Assessment & Plan (1) MDD (major depressive disorder), recurrent episode, moderate: Status: Acute Code(s): F33.1 - Major depressive disorder, recurrent, moderate (2) PTSD (post-traumatic stress disorder): Status: Acute Code(s): F43.10 - Post-traumatic stress disorder, unspecified (3) Suicidal ideation: Status: Acute Code(s): R45.851 - Suicidal ideations (4) Cocaine use disorder: Status: Acute Code(s): F14.10 - Cocaine abuse, uncomplicated Plan 51 yo male, s/p suicide attempt via jumping in the [place]. Plan: Restore previous regime- Fluoxetine, Gabapentin, Tramadol, which he reports was helpful. MVI daily Seroquel 25 mg HS and 25 mg bid prn anxiety, agitation. Repeat CBC on 03/02 (exposure monitoring s/p suicide attempt) Pt asks for CSS placement assistance. 02/28/2022: No changes to current treatment plan I spent minutes with the patient and/or on the patient floor today, greater than?50% of which was spent counseling/coordinating care. Reason for contiued inpatient stay Substantial Risk for: harm to self
[2022-02-28] MEDS: hydrOXYzine HCL 25 MG TABLET PO ×2 (14:45→20:24)
[2022-02-28] MEDS: traZODone HCL 50 MG TABLET PO ×2 (20:21→22:08)
[2022-02-28 21:05] VITALS: BP 150/102; PULSE 80; RESP 14; TEMP 36.2
[2022-02-28 22:00] VITALS: BP 148/98
[2022-02-28] MEDS: cloNIDine HCL 0.1 MG TABLET PO (22:08)
[2022-03-01] MEDS: FLUoxetine HCl 10 MG CAPSULE PO (08:46)
[2022-03-01] MEDS: Gabapentin 300 MG CAPSULE PO ×3 (08:46→21:01)
[2022-03-01] MEDS: Multivitamin TABLET 1 TAB PO (08:46)
[2022-03-01] MEDS: traMADoL HCL 50 MG TABLET 25 MG PO ×3 (08:48→21:02)
[2022-03-01 09:48] VITALS: BP 165/86; PULSE 83; RESP 18; TEMP 36.4; O2SAT 99
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
[2022-03-01 16:22] VITALS: BP 141/68; PULSE 126; RESP 18; TEMP 38.1; O2SAT 95
[2022-03-01 18:57] VITALS: PULSE 119; RESP 18
[2022-03-01] MEDS: QUEtiapine Fumarate 25 MG TABLET PO (21:01)
[2022-03-01] MEDS: Famotidine 20 MG TABLET PO (21:02)
[2022-03-01] MEDS: traZODone HCL 50 MG TABLET PO (21:02)
[2022-03-02] MEDS: traMADoL HCL 50 MG TABLET 25 MG PO ×3 (03:02→16:43)
[2022-03-02 06:00] VITALS: BP 139/87; PULSE 94; RESP 18; TEMP 36.4; O2SAT 98
[2022-03-02] MEDS: FLUoxetine HCl 10 MG CAPSULE PO (09:23)
[2022-03-02] MEDS: Multivitamin TABLET 1 TAB PO (09:23)
[2022-03-02] MEDS: Gabapentin 300 MG CAPSULE PO ×3 (09:25→20:52)
[2022-03-02] MEDS: QUEtiapine Fumarate 25 MG TABLET PO ×2 (14:16→20:53)
[2022-03-02 16:46] VITALS: BP 137/77; PULSE 101; TEMP 37.2
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
[2022-03-02] MEDS: traZODone HCL 50 MG TABLET PO (20:53)
[2022-03-02] MEDS: Famotidine 20 MG TABLET PO (20:53)
[2022-03-02] MEDS: QUEtiapine Fumarate 50 MG TABLET PO (20:54)
[2022-03-02 21:57] VITALS: BP 117/63; PULSE 135; O2SAT 95
[2022-03-03 06:00] VITALS: BP 118/72; PULSE 92; RESP 18; TEMP 37.4; O2SAT 95
[2022-03-03] MEDS: Multivitamin TABLET 1 TAB PO (08:22)
[2022-03-03] MEDS: cloNIDine HCL 0.1 MG TABLET PO ×2 (08:22→20:20)
[2022-03-03] MEDS: Famotidine 20 MG TABLET PO ×2 (08:22→20:20)
[2022-03-03] MEDS: QUEtiapine Fumarate 25 MG TABLET PO ×2 (08:22→16:03)
[2022-03-03] MEDS: Acetaminophen 325 MG TABLET 650 MG PO (08:22)
[2022-03-03] MEDS: Gabapentin 300 MG CAPSULE PO ×3 (08:22→20:19)
[2022-03-03] MEDS: FLUoxetine HCl 10 MG CAPSULE PO (08:22)
[2022-03-03] MEDS: hydrOXYzine HCL 25 MG TABLET PO ×2 (08:23→20:20)
[2022-03-03] MEDS: traMADoL HCL 50 MG TABLET 25 MG PO ×2 (08:34→16:03)
--- NOTE | 2022-03-03 16:54 | HO.PSYCHPN ---
Subjective Subjective Date of Service: 03/03/22 Reason For Visit: PTSD, recurrent MOD, S/P Suicide attempt in [place] Subjective Notes: Conditional Voluntary Healthcare Proxy: No Guardianship: No Medical Problems Affecting Mental Status: No Interim History: Insomnia Sore Throat, swollen glands . Review of medications with titration today. Insomnia persists Medication Compliance: Yes Side effects from medications: No Attending Groups: Intermittent Review of Systems Acute medical concerns: No Medical Review of Systems: unchanged Mental Status Exam Mental Status Exam Patient Appearance: Fatigued Patient Orientation: Person, Place, Time and Situation Level of Consciousness: Alert Patient Behavior: Appropriate, Talkative, Cooperative and Good Eye Contact Mood Description: Depressed Affect Description: Flat Patient Cognition Impaired: No Ability to Follow Directions: Good Speech Pattern: Spontaneous Speech Memory Description: Episodic Impaired Hallucinations: None Delusions: Not Present Perceptual Disturbances: Derealization Thought Process: Distracted and Rumination Thought Content: positive for [place], positive for Circumstantial and positive for Suicidal Ideation Depressive Symptoms: Increased Anxiety, Insomnia, Difficulty Sleeping, Changes in Appetite, Feelings of Worthlessness, Hopelessness, Isolating-Friends/Family, Unhappiness, Increased Fatigue, Thoughts of /Suicide, Low Self Esteem and Loss of Energy Judgement: Fair Diagnostics Vital Signs (24Hr): Vital Signs - 24 hr 03/02/22 21:57 03/03/22 06:00 Temperature 99.3 F Pulse Rate 135 H 92 Respiratory Rate 18 Blood Pressure 117/63 118/72 Pulse Oximetry 95 95 Oxygen Delivery Method Room Air BMI result Body Mass Index 24.2 Labs Results: 02/26/22 12:18 02/27/22 08:14 Medications Medications Current Medications Acetaminophen (Acetaminophen 325 Mg Tablet) 650 mg PO Q6H PRN PRN Reason: Headache/Pain Mild Scale (1-3) Last Admin: 03/03/22 08:22 Dose: 650 mg Al Hydroxide/Mg Hydroxide (Magnesium Hydrox/Alum Hydrox 30 Ml Oral.Susp) 30 ml PO Q6H PRN PRN Reason: Heartburn/Nausea Baclofen (Baclofen 10 Mg Tablet) 10 mg PO BID PRN PRN Reason: withdrawal Benzocaine (Throat Lozenge, Medicated Lozenge) 1 lozenge MUCOUS MEM Q2H PRN PRN Reason: Sore Throat Clonidine HCl (Clonidine Hcl 0.1 Mg Tablet) 0.1 mg PO TID PRN; Protocol PRN Reason: Anxiety Last Admin: 03/03/22 08:22 Dose: 0.1 mg Famotidine (Famotidine 20 Mg Tablet) 20 mg PO BID [facility] Last Admin: 03/03/22 08:22 Dose: 20 mg Fluoxetine HCl (Fluoxetine Hcl 10 Mg Capsule) 10 mg PO DAILY [facility] Last Admin: 03/03/22 08:22 Dose: 10 mg Gabapentin (Gabapentin 300 Mg Capsule) 300 mg PO TID [facility] Last Admin: 03/03/22 16:04 Dose: 300 mg Hydroxyzine HCl (Hydroxyzine Hcl 25 Mg Tablet) 25 mg PO Q6H PRN PRN Reason: Anxiety Last Admin: 03/03/22 08:23 Dose: 25 mg Magnesium Hydroxide (Milk Of Magnesia 30 Ml Oral.Susp) 30 ml PO DAILY PRN PRN Reason: Constipation Multi-Ingred Medicated Throat [place] (Throat [place], Medicated 177 Ml Bottle) 1 spray MUCOUS MEM Q2H PRN PRN Reason: Sore Throat Multivitamins/Vitamin C (Multivitamin Tablet) 1 tab PO DAILY [facility] Last Admin: 03/03/22 08:22 Dose: 1 tab Naproxen (Naproxen 500 Mg Tablet) 500 mg PO Q12H PRN PRN Reason: Pain, Mild (Pain Scale 1-3) Last Admin: 02/27/22 15:57 Dose: 500 mg Quetiapine Fumarate (Quetiapine Fumarate 25 Mg Tablet) 25 mg PO BID PRN PRN Reason: agitation Last Admin: 03/03/22 16:03 Dose: 25 mg Quetiapine Fumarate (Quetiapine Fumarate 25 Mg Tablet) 75 mg PO BEDTIME [facility] Tramadol HCl (Tramadol Hcl 50 Mg Tablet) 25 mg PO Q6H PRN PRN Reason: Pain, Mild (Pain Scale 1-3) Last Admin: 03/03/22 16:03 Dose: 25 mg Trazodone HCl (Trazodone Hcl 100 Mg Tablet) 100 mg PO BEDTIME PRN PRN Reason: Insomnia Allergies Allergies Allergy/AdvReac Type Severity Reaction Status Date / Time Iodinated Contrast Media Allergy Intermediate Hives Verified 12/13/20 12:40 Assessment & Plan Assessment & Plan (1) MDD (major depressive disorder), recurrent episode, moderate: Status: Acute Code(s): F33.1 - Major depressive disorder, recurrent, moderate (2) PTSD (post-traumatic stress disorder): Status: Acute Code(s): F43.10 - Post-traumatic stress disorder, unspecified (3) Suicidal ideation: Status: Acute Code(s): R45.851 - Suicidal ideations (4) Cocaine use disorder: Status: Acute Code(s): F14.10 - Cocaine abuse, uncomplicated Plan 51 yo male, s/p suicide attempt via [place]. Plan: Restore previous regime- Fluoxetine, Gabapentin, Tramadol, which he reports was helpful. MVI daily Seroquel 25 mg HS and 25 mg bid prn anxiety, agitation. Repeat CBC on 03/02 (exposure monitoring s/p suicide attempt) Pt asks for CSS placement assistance. 02/28/2022: No changes to current treatment plan 03/01/2022: No changes to current plan 03/02/22: Ensure (2) TID Add Trazodone prn to standing dosage Seroquel increase to 50 mg HS 03/03/22: Increase Seroquel to 50 mg hs Increase Trazodone to 100 mg hs Sx target is sleep Throat culture, COVID testing Cepacol jessica, throat spray prn I spent minutes with the patient and/or on the patient floor today, greater than?50% of which was spent counseling/coordinating care. Patient educated on: medication risk/benefits and therapeutic strategies Informed Consent: understands Reason for contiued inpatient stay Substantial Risk for: harm to self and inability to function Time Spent With Patient Time: Total time managing care of this patient today __20__ minutes.
[2022-03-03] MEDS: Throat Lozenge, Medicated LOZENGE 1 LOZENGE MUCOUS MEM (17:39)
[2022-03-03 18:00] VITALS: BP 157/87; PULSE 112; RESP 20; TEMP 36.9; O2SAT 98
[2022-03-03 18:31] LABS: COVID-19 Test Negative (Negative); IDNOW Serial# 16C4AD1C
[2022-03-03 19:30] VITALS: BP 163/83; PULSE 109; RESP 18; TEMP 37.7; O2SAT 96
[2022-03-03] MEDS: traZODone HCL 100 MG TABLET PO ×3 (20:19→21:45)
[2022-03-03] MEDS: QUEtiapine Fumarate 25 MG TABLET 75 MG PO (20:19)
[2022-03-03] MEDS: Baclofen 10 MG TABLET PO (20:19)
[2022-03-03] MEDS: Throat Spray, Medicated 177 ML BOTTLE 1 SPRAY MUCOUS MEM (20:22)
[2022-03-03] MEDS: Divalproex Sodium ER 500 MG TAB.ER.24H PO (22:24)
[2022-03-04] MEDS: Throat Spray, Medicated 177 ML BOTTLE 1 SPRAY MUCOUS MEM (00:27)
[2022-03-04] MEDS: Famotidine 20 MG TABLET PO (09:03)
[2022-03-04] MEDS: FLUoxetine HCl 10 MG CAPSULE PO (09:03)
[2022-03-04] MEDS: Multivitamin TABLET 1 TAB PO (09:03)
[2022-03-04] MEDS: Gabapentin 300 MG CAPSULE PO ×3 (09:03→17:00)
[2022-03-04 09:05] VITALS: BP 133/66; PULSE 92; RESP 16; TEMP 36.6; O2SAT 97
[2022-03-04] MEDS: traMADoL HCL 50 MG TABLET 25 MG PO ×2 (10:21→23:32)
--- NOTE | 2022-03-04 17:05 | P.PNPSI_ITS ---
Subjective Subjective Date of Service: 03/04/22 Reason For Visit: PTSD, recurrent MOD, S/P [place] attempt [place] Subjective Notes: Conditional Voluntary Healthcare Proxy: No Guardianship: No Medical Problems Affecting Mental Status: No Interim History: No, still no sleep. It is sometimes an awake type sleep, not restful. Discussed possible interventions. Will trial Remeron and an increase in HS Gabapentin. Pt reports his sore throat has improved Medication Compliance: Yes Side effects from medications: No Attending Groups: Intermittent Review of Systems Acute medical concerns: No Medical Review of Systems: unchanged Mental Status Exam Mental Status Exam Patient Appearance: Fatigued Patient Orientation: Person, Place, Time and Situation Level of Consciousness: Alert Patient Behavior: Appropriate, Talkative, Cooperative and Good Eye Contact Mood Description: Depressed Affect Description: Flat Patient Cognition Impaired: No Ability to Follow Directions: Good Speech Pattern: Spontaneous Speech Memory Description: Episodic Impaired Hallucinations: None Delusions: Not Present Perceptual Disturbances: Derealization Thought Process: Distracted and Rumination Thought Content: positive for [place], positive for Circum[place] and positive for Suicidal Ideation Depressive Symptoms: Increased Anxiety, Insomnia, Difficulty Sleeping, Changes in Appetite, Feelings of Worthlessness, Hopelessness, Isolating-Friends/Family, Unhappiness, Increased Fatigue, Thoughts of /Suicide, Low Self Esteem and Loss of Energy Judgement: Fair Diagnostics Vital Signs (24Hr): Vital Signs - 24 hr 03/03/22 18:00 03/03/22 19:30 03/04/22 09:05 Temperature 98.5 F 99.9 F 97.9 F Pulse Rate 112 H 109 H 92 Respiratory Rate 20 18 16 Blood Pressure 157/87 H 163/83 H 133/66 Pulse Oximetry 98 96 97 Oxygen Delivery Method Room Air Room Air Room Air BMI result Body Mass Index 24.2 Labs Results: 02/26/22 12:18 02/27/22 08:14 Labs: Laboratory Results - last 48 hr 03/03/22 18:00 COVID-19 ([facility]) Negative COVID-19 Clin Com See Note Medications Medications Current Medications Acetaminophen (Acetaminophen 325 Mg Tablet) 650 mg PO Q6H PRN PRN Reason: Headache/Pain Mild Scale (1-3) Last Admin: 03/03/22 08:22 Dose: 650 mg Al Hydroxide/Mg Hydroxide (Magnesium Hydrox/Alum Hydrox 30 Ml Oral.Susp) 30 ml PO Q6H PRN PRN Reason: Heartburn/Nausea Benzocaine (Throat Lozenge, Medicated Lozenge) 1 lozenge MUCOUS MEM Q2H PRN PRN Reason: Sore Throat Last Admin: 03/03/22 17:39 Dose: 1 lozenge Clonidine HCl (Clonidine Hcl 0.1 Mg Tablet) 0.1 mg PO TID PRN; Protocol PRN Reason: Anxiety Last Admin: 03/03/22 20:20 Dose: 0.1 mg Fluoxetine HCl (Fluoxetine Hcl 10 Mg Capsule) 10 mg PO DAILY [facility] Last Admin: 03/04/22 09:03 Dose: 10 mg Gabapentin (Gabapentin 300 Mg Capsule) 300 mg PO 0900,1600 [facility] Gabapentin (Gabapentin 600 Mg Tablet) 600 mg PO BEDTIME [facility] Hydroxyzine HCl (Hydroxyzine Hcl 25 Mg Tablet) 25 mg PO Q6H PRN PRN Reason: Anxiety Last Admin: 03/03/22 20:20 Dose: 25 mg Magnesium Hydroxide (Milk Of Magnesia 30 Ml Oral.Susp) 30 ml PO DAILY PRN PRN Reason: Constipation Mirtazapine (Mirtazapine 15 Mg Tablet) 15 mg PO BEDTIME [facility] Multi-Ingred Medicated Throat [place] (Throat [place], Medicated 177 Ml Bottle) 1 s pray MUCOUS MEM Q2H PRN PRN Reason: Sore Throat Last Admin: 03/04/22 00:27 Dose: 1 spray Multivitamins/Vitamin C (Multivitamin Tablet) 1 tab PO DAILY [facility] Last Admin: 03/04/22 09:03 Dose: 1 tab Naproxen (Naproxen 500 Mg Tablet) 500 mg PO Q12H PRN PRN Reason: Pain, Mild (Pain Scale 1-3) Last Admin: 02/27/22 15:57 Dose: 500 mg Tramadol HCl (Tramadol Hcl 50 Mg Tablet) 25 mg PO Q6H PRN PRN Reason: Pain, Mild (Pain Scale 1-3) Last Admin: 03/04/22 10:21 Dose: 25 mg Allergies Allergies Allergy/AdvReac Type Severity Reaction Status Date / Time Iodinated Contrast Media Allergy Intermediate Hives Verified 12/13/20 12:40 Assessment & Plan Assessment & Plan (1) MDD (major depressive disorder), recurrent episode, moderate: Status: Acute Code(s): F33.1 - Major depressive disorder, recurrent, moderate (2) PTSD (post-traumatic stress disorder): Status: Acute Code(s): F43.10 - Post-traumatic stress disorder, unspecified (3) Suicidal ideation: Status: Acute Code(s): R45.851 - Suicidal ideations (4) Cocaine use disorder: Status: Acute Code(s): F14.10 - Cocaine abuse, uncomplicated Plan 51 yo male, s/p [place] attempt via [place]. Plan: Restore previous regime- Fluoxetine, Gabapentin, Tramadol, which he reports was helpful. MVI daily Seroquel 25 mg HS and 25 mg bid prn anxiety, agitation. Repeat CBC on 03/02 (exposure monitoring s/p suicide attempt) Pt asks for CSS placement assistance. 02/28/2022: No changes to current treatment plan 03/01/2022: No changes to current plan 03/02/22: Ensure (2) TID Add Trazodone prn to standing dosage Seroquel increase to 50 mg HS 03/03/22: Increase Seroquel to 50 mg hs Increase Trazodone to 100 mg hs Sx target is sleep Throat culture, COVID testing Cepacol jessica, throat spray prn 03/04/22 Discontinue Seroquel, Trazodone Remeron 15 mg HS Increase Gabapentin to 300 mg bid and 600 mg HS I spent minutes with the patient and/or on the patient floor today, greater than?50% of which was spent counseling/coordinating care. Patient educated on: medication risk/benefits, therapeutic strategies and other (sleep hygiene) Informed Consent: understands and further education needed Reason for contiued inpatient stay Substantial Risk for: harm to self, inability to function and rapid decompensation Time Spent With Patient Time: Total time managing care of this patient today __20__ minutes.
[2022-03-04 18:00] VITALS: BP 132/80; PULSE 70; RESP 18; TEMP 36.6; O2SAT 97
[2022-03-04] MEDS: Throat Lozenge, Medicated LOZENGE 1 LOZENGE MUCOUS MEM (18:23)
[2022-03-04] MEDS: Gabapentin 600 MG TABLET PO (22:26)
[2022-03-04] MEDS: Mirtazapine 15 MG TABLET PO (22:26)
[2022-03-05] MEDS: traMADoL HCL 50 MG TABLET 25 MG PO ×3 (09:19→22:27)
[2022-03-05] MEDS: Multivitamin TABLET 1 TAB PO (09:19)
[2022-03-05 10:19] VITALS: BP 147/83; PULSE 103; RESP 18; TEMP 36.1; O2SAT 99
[2022-03-05] MEDS: Gabapentin 300 MG CAPSULE PO ×2 (10:49→15:50)
[2022-03-05 16:16] VITALS: BP 149/78; PULSE 101; TEMP 37
--- NOTE | 2022-03-05 16:33 | P.PNPSI_ITS ---
Subjective Subjective Date of Service: 03/05/22 Reason For Visit: PTSD, recurrent MOD, S/P [place] Subjective Notes: Conditional Voluntary Healthcare Proxy: No Guardianship: No Interim History: Pt reports sleeping 5 hours which he is pleased with. Will increase Mirtazapine to 30 mg hs to continue to work on his sleep stabilization. Medication Compliance: Yes Side effects from medications: No Attending Groups: Intermittent Review of Systems Acute medical concerns: No Medical Review of Systems: unchanged Mental Status Exam Mental Status Exam Patient Appearance: Fatigued Patient Orientation: Person, Place, Time and Situation Level of Consciousness: Alert Patient Behavior: Appropriate, Talkative, Cooperative and Good Eye Contact Mood Description: Depressed Affect Description: Flat Patient Cognition Impaired: No Ability to Follow Directions: Good Speech Pattern: Spontaneous Speech Memory Description: Episodic Impaired Hallucinations: None Delusions: Not Present Perceptual Disturbances: Derealization Thought Process: Distracted and Rumination Thought Content: positive for [place], positive for Circum[place] and positive for Suicidal Ideation Depressive Symptoms: Increased Anxiety, Insomnia, Difficulty Sleeping, Changes in Appetite, Feelings of Worthlessness, Hopelessness, Isolating-Friends/Family, Unhappiness, Increased Fatigue, Thoughts of /Suicide, Low Self Esteem and Loss of Energy Judgement: Fair Diagnostics Vital Signs (24Hr): Vital Signs - 24 hr 03/04/22 18:00 03/05/22 10:19 03/05/22 16:16 Temperature 98 F 97.0 F 98.6 F Pulse Rate 70 103 H 101 H Respiratory Rate 18 18 Blood Pressure 132/80 147/83 H 149/78 H Pulse Oximetry 97 99 Oxygen Delivery Method Room Air Room Air BMI result Body Mass Index 24.2 Labs Results: 02/26/22 12:18 02/27/22 08:14 Labs: Laboratory Results - last 48 hr 03/03/22 18:00 COVID-19 ([facility]) Negative COVID-19 Clin Com See Note Medications Medications Current Medications Acetaminophen (Acetaminophen 325 Mg Tablet) 650 mg PO Q6H PRN PRN Reason: Headache/Pain Mild Scale (1-3) Last Admin: 03/03/22 08:22 Dose: 650 mg Al Hydroxide/Mg Hydroxide (Magnesium Hydrox/Alum Hydrox 30 Ml Oral.Susp) 30 ml PO Q6H PRN PRN Reason: Heartburn/Nausea Benzocaine (Throat Lozenge, Medicated Lozenge) 1 lozenge MUCOUS MEM Q2H PRN PRN Reason: Sore Throat Last Admin: 03/04/22 18:23 Dose: 1 lozenge Clonidine HCl (Clonidine Hcl 0.1 Mg Tablet) 0.1 mg PO TID PRN; Protocol PRN Reason: Anxiety Last Admin: 03/03/22 20:20 Dose: 0.1 mg Fluoxetine HCl (Fluoxetine Hcl 10 Mg Capsule) 10 mg PO DAILY [facility] Last Admin: 03/05/22 10:20 Dose: Not Given Gabapentin (Gabapentin 300 Mg Capsule) 300 mg PO 0900,1600 [facility] Last Admin: 03/05/22 15:50 Dose: 300 mg Gabapentin (Gabapentin 600 Mg Tablet) 600 mg PO BEDTIME [facility] Last Admin: 03/04/22 22:26 Dose: 600 mg Hydroxyzine HCl (Hydroxyzine Hcl 25 Mg Tablet) 25 mg PO Q6H PRN PRN Reason: Anxiety Last Admin: 03/03/22 20:20 Dose: 25 mg Magnesium Hydroxide (Milk Of Magnesia 30 Ml Oral.Susp) 30 ml PO DAILY PRN PRN Reason: Constipation Mirtazapine (Mirtazapine 30 Mg Tablet) 30 mg PO BEDTIME [facility] Multi-Ingred Medicated Throat [place] (Throat [place], Medicated 177 Ml Bottle) 1 spray MUCOUS MEM Q2H PRN PRN Reason: Sore Throat Last Admin: 03/04/22 00:27 Dose: 1 spray Multivitamins/Vitamin C (Multivitamin Tablet) 1 tab PO DAILY [facility] Last Admin: 03/05/22 09:19 Dose: 1 tab Naproxen (Naproxen 500 Mg Tablet) 500 mg PO Q12H PRN PRN Reason: Pain, Mild (Pain Scale 1-3) Last Admin: 02/27/22 15:57 Dose: 500 mg Tramadol HCl (Tramadol Hcl 50 Mg Tablet) 25 mg PO Q6H PRN PRN Reason: Pain, Mild (Pain Scale 1-3) Last Admin: 03/05/22 09:19 Dose: 25 mg Allergies Allergies Allergy/AdvReac Type Severity Reaction Status Date / Time Iodinated Contrast Media Allergy Intermediate Hives Verified 12/13/20 12:40 Assessment & Plan Assessment & Plan (1) MDD (major depressive disorder), recurrent episode, moderate: Status: Acute Code(s): F33.1 - Major depressive disorder, recurrent, moderate (2) PTSD (post-traumatic stress disorder): Status: Acute Code(s): F43.10 - Post-traumatic stress disorder, unspecified (3) Suicidal ideation: Status: Acute Code(s): R45.851 - Suicidal ideations (4) Cocaine use disorder: Status: Acute Code(s): F14.10 - Cocaine abuse, uncomplicated Plan 51 yo male, s/p suicide attempt via [place]. Plan: Restore previous regime- Fluoxetine, Gabapentin, Tramadol, which he reports was helpful. MVI daily Seroquel 25 mg HS and 25 mg bid prn anxiety, agitation. Repeat CBC on 03/02 (exposure monitoring s/p suicide attempt) Pt asks for CSS placement assistance. 02/28/2022: No changes to current treatment plan 03/01/2022: No changes to current plan 03/02/22: Ensure (2) TID Add Trazodone prn to standing dosage Seroquel increase to 50 mg HS 03/03/22: Increase Seroquel to 50 mg hs Increase Trazodone to 100 mg hs Sx target is sleep Throat culture, COVID testing Cepacol jessica, throat spray prn 03/05/22 Increase Mirtazapine to 30 mg HS I spent minutes with the patient and/or on the patient floor today, greater than?50% of which was spent counseling/coordinating care. Patient educated on: medication risk/benefits and therapeutic strategies Informed Consent: understands and further education needed Reason for contiued inpatient stay Substantial Risk for: harm to self and rapid decompensation Time Spent With Patient Time: Total time managing care of this patient today __30__ minutes.
[2022-03-05] MEDS: cloNIDine HCL 0.1 MG TABLET PO (22:27)
[2022-03-05] MEDS: Mirtazapine 30 MG TABLET PO (22:27)
[2022-03-05] MEDS: Gabapentin 600 MG TABLET PO (22:27)
[2022-03-06] MEDS: NaPROXEN 500 MG TABLET PO (02:18)
[2022-03-06] MEDS: hydrOXYzine HCL 25 MG TABLET PO (02:18)
[2022-03-06] MEDS: Multivitamin TABLET 1 TAB PO (08:33)
[2022-03-06] MEDS: Gabapentin 300 MG CAPSULE PO ×2 (08:33→15:34)
[2022-03-06] MEDS: traMADoL HCL 50 MG TABLET 25 MG PO (08:33)
[2022-03-06 09:00] VITALS: BP 133/86; PULSE 76; RESP 18; TEMP 36.2; O2SAT 98
[2022-03-06 11:29] VITALS: BMI 26.2
[2022-03-06 16:48] VITALS: BP 197/78; PULSE 78; RESP 14; TEMP 36.1
--- NOTE | 2022-03-06 18:19 | HO.PSYCHPN ---
Subjective Subjective Date of Service: 03/06/22 Reason For Visit: PTSD, recurrent MOD, S/P [place] Subjective Notes: Conditional Voluntary Healthcare Proxy: No Guardianship: No Medical Problems Affecting Mental Status: No Interim History: Reports poor sleep. Increase in Remeron not helpful Describes when falling asleep sees himself going [place], choking, having some hyperactive startle sx. Making calls to [facility] [employer] and advocating for admission Pleased that mom is visiting and staying connected. Medication Compliance: Yes Side effects from medications: No Attending Groups: Intermittent Review of Systems Acute medical concerns: No Medical Review of Systems: unchanged Mental Status Exam Mental Status Exam Patient Appearance: Fatigued Patient Orientation: Person, Place, Time and Situation Level of Consciousness: Alert Patient Behavior: Appropriate, Talkative, Cooperative and Good Eye Contact Mood Description: Depressed Affect Description: Flat Patient Cognition Impaired: No Ability to Follow Directions: Good Speech Pattern: Spontaneous Speech Memory Description: Episodic Impaired Hallucinations: None Delusions: Not Present Perceptual Disturbances: Derealization Thought Process: Distracted and Rumination Thought Content: positive for [place], positive for Circumstantial and positive for Suicidal Ideation Depressive Symptoms: Increased Anxiety, Insomnia, Difficulty Sleeping, Changes in Appetite, Feelings of Worthlessness, Hopelessness, Isolating-Friends/Family, Unhappiness, Increased Fatigue, Thoughts of /Suicide, Low Self Esteem and Loss of Energy Judgement: Fair Diagnostics Vital Signs (24Hr): Vital Signs - 24 hr 03/06/22 09:00 03/06/22 16:48 Temperature 97.1 F 97 F Pulse Rate 76 78 Respiratory Rate 18 14 Blood Pressure 133/86 197/78 H Pulse Oximetry 98 Oxygen Delivery Method Room Air BMI result Body Mass Index 26.2 Labs Results: 02/26/22 12:18 02/27/22 08:14 Medications Medications Current Medications Acetaminophen (Acetaminophen 325 Mg Tablet) 650 mg PO Q6H PRN PRN Reason: Headache/Pain Mild Scale (1-3) Last Admin: 03/03/22 08:22 Dose: 650 mg Al Hydroxide/Mg Hydroxide (Magnesium Hydrox/Alum Hydrox 30 Ml Oral.Susp) 30 ml PO Q6H PRN PRN Reason: Heartburn/Nausea Benzocaine (Throat Lozenge, Medicated Lozenge) 1 lozenge MUCOUS MEM Q2H PRN PRN Reason: Sore Throat Last Admin: 03/04/22 18:23 Dose: 1 lozenge Chlorpromazine HCl (Chlorpromazine Hcl 100 Mg Tablet) 75 mg PO BEDTIME [facility] Clonidine HCl (Clonidine Hcl 0.1 Mg Tablet) 0.1 mg PO TID PRN; Protocol PRN Reason: Anxiety Last Admin: 03/05/22 22:27 Dose: 0.1 mg Fluoxetine HCl (Fluoxetine Hcl 10 Mg Capsule) 10 mg PO DAILY [facility] Last Admin: 03/06/22 08:33 Dose: Not Given Gabapentin (Gabapentin 300 Mg Capsule) 300 mg PO 0900,1600 [facility] Last Admin: 03/06/22 15:34 Dose: 300 mg Gabapentin (Gabapentin 600 Mg Tablet) 600 mg PO BEDTIME SHARON Last Admin: 03/05/22 22:27 Dose: 600 mg Hydroxyzine HCl (Hydroxyzine Hcl 25 Mg Tablet) 25 mg PO Q6H PRN PRN Reason: Anxiety Last Admin: 03/06/22 02:18 Dose: 25 mg Magnesium Hydroxide (Milk Of Magnesia 30 Ml Oral.Susp) 30 ml PO DAILY PRN PRN Reason: Constipation Mirtazapine (Mirtazapine 15 Mg Tablet) 15 mg PO BEDTIME [facility] Multi-Ingred Medicated Throat [place] (Throat [place], Medicated 177 Ml Bottle) 1 spray MUCOUS MEM Q2H PRN PRN Reason: Sore Throat Last Admin: 03/04/22 00:27 Dose: 1 spray Multivitamins/Vitamin C (Multivitamin Tablet) 1 tab PO DAILY [facility] Last Admin: 03/06/22 08:33 Dose: 1 tab Naproxen (Naproxen 500 Mg Tablet) 500 mg PO Q12H PRN PRN Reason: Pain, Mild (Pain Scale 1-3) Last Admin: 03/06/22 02:18 Dose: 500 mg Tramadol HCl (Tramadol Hcl 50 Mg Tablet) 25 mg PO Q6H PRN PRN Reason: Pain, Mild (Pain Scale 1-3) Last Admin: 03/06/22 08:33 Dose: 25 mg Allergies Allergies Allergy/AdvReac Type Severity Reaction Status Date / Time Iodinated Contrast Media Allergy Intermediate Hives Verified 12/13/20 12:40 Assessment & Plan Assessment & Plan (1) MDD (major depressive disorder), recurrent episode, moderate: Status: Acute Code(s): F33.1 - Major depressive disorder, recurrent, moderate (2) PTSD (post-traumatic stress disorder): Status: Acute Code(s): F43.10 - Post-traumatic stress disorder, unspecified (3) Suicidal ideation: Status: Acute Code(s): R45.851 - Suicidal ideations (4) Cocaine use disorder: Status: Acute Code(s): F14.10 - Cocaine abuse, uncomplicated Plan 51 yo male, s/p suicide attempt via [place]. Plan: Restore previous regime- Fluoxetine, Gabapentin, Tramadol, which he reports was helpful. MVI daily Seroquel 25 mg HS and 25 mg bid prn anxiety, agitation. Repeat CBC on 03/02 (exposure monitoring s/p suicide attempt) Pt asks for CSS placement assistance. 02/28/2022: No changes to current treatment plan 03/01/2022: No changes to current plan 03/02/22: Ensure (2) TID Add Trazodone prn to standing dosage Seroquel increase to 50 mg HS 03/03/22: Increase Seroquel to 50 mg hs Increase Trazodone to 100 mg hs Sx target is sleep Throat culture, COVID testing Cepacol jessica, throat spray prn 03/05/22 Increase Mirtazapine to 30 mg HS 03/06/22: Decrease Mirtazapine to 15 mg HS Chlorpromazine 75 mg hs I spent minutes with the patient and/or on the patient floor today, greater than?50% of which was spent counseling/coordinating care. Patient educated on: medication risk/benefits Informed Consent: understands and further education needed Reason for contiued inpatient stay Substantial Risk for: harm to self, inability to function and rapid decompensation Time Spent With Patient Time: Total time managing care of this patient today ___20_ minutes.
[2022-03-06] MEDS: Mirtazapine 15 MG TABLET PO (21:50)
[2022-03-06] MEDS: Gabapentin 600 MG TABLET PO (21:50)
[2022-03-06] MEDS: chlorproMAZINE HCl 25 MG TABLET 75 MG PO (21:54)
[2022-03-07] MEDS: Multivitamin TABLET 1 TAB PO (09:18)
[2022-03-07] MEDS: traMADoL HCL 50 MG TABLET 25 MG PO ×2 (09:22→21:07)
[2022-03-07] MEDS: Gabapentin 300 MG CAPSULE PO (09:22)
[2022-03-07 09:57] VITALS: BP 121/70; PULSE 81; RESP 16; TEMP 36.2; O2SAT 99
--- NOTE | 2022-03-07 10:46 | P.PNPSI_ITS ---
Subjective Subjective Date of Service: 03/07/22 Reason For Visit: PTSD, recurrent MOD, S/P Suicide attempt in [place] Interim History: still depressed but no SI; hard time sleeping. Agrees to schedule clonidine at bedtime Mental Status Exam Mental Status Exam Narrative: Pt is alert and oriented; behavior is cooperative and calm; patient is not in distress; dressed in casual attire, bald, adequate hygiene; mood is described as depressed and affect constricted; eye contact appropriate; Speech is normal rate, volume and prosody and not pressured; no psychomotor agitation/retardation present; thought process is organized and goal directed; Thought content is on tx; otherwise pertinent to relevant topics and without any delusional content, paranoid ideations or grandiosity; intermittent SI; no HI. There is no evidence of perceptual disturbance. Patients insight and judgment appear intact. Diagnostics Vital Signs (24Hr): Vital Signs - 24 hr 03/06/22 16:48 03/07/22 09:57 Temperature 97 F 97.2 F Pulse Rate 78 81 Respiratory Rate 14 16 Blood Pressure 197/78 H 121/70 Pulse Oximetry 99 Oxygen Delivery Method Room Air BMI result Body Mass Index 26.2 Labs Results: 02/26/22 12:18 02/27/22 08:14 Medications Medications Current Medications Acetaminophen (Acetaminophen 325 Mg Tablet) 650 mg PO Q6H PRN PRN Reason: Headache/Pain Mild Scale (1-3) Last Admin: 03/03/22 08:22 Dose: 650 mg Al Hydroxide/Mg Hydroxide (Magnesium Hydrox/Alum Hydrox 30 Ml Oral.Susp) 30 ml PO Q6H PRN PRN Reason: Heartburn/Nausea Benzocaine (Throat Lozenge, Medicated Lozenge) 1 lozenge MUCOUS MEM Q2H PRN PRN Reason: Sore Throat Last Admin: 03/04/22 18:23 Dose: 1 lozenge Chlorpromazine HCl (Chlorpromazine Hcl 25 Mg Tablet) 75 mg PO BEDTIME [facility] Last Admin: 03/06/22 21:54 Dose: 75 mg Clonidine HCl (Clonidine Hcl 0.1 Mg Tablet) 0.1 mg PO TID PRN; Protocol PRN Reason: Anxiety Last Admin: 03/05/22 22:27 Dose: 0.1 mg Fluoxetine HCl (Fluoxetine Hcl 10 Mg Capsule) 10 mg PO DAILY [facility] Last Admin: 03/07/22 09:21 Dose: Not Given Gabapentin (Gabapentin 300 Mg Capsule) 300 mg PO 0900,1600 [facility] Last Admin: 03/07/22 09:22 Dose: 300 mg Gabapentin (Gabapentin 600 Mg Tablet) 600 mg PO BEDTIME SH[facility]ON Last Admin: 03/06/22 21:50 Dose: 600 mg Hydroxyzine HCl (Hydroxyzine Hcl 25 Mg Tablet) 25 mg PO Q6H PRN PRN Reason: Anxiety Last Admin: 03/06/22 02:18 Dose: 25 mg Magnesium Hydroxide (Milk Of Magnesia 30 Ml Oral.Susp) 30 ml PO DAILY PRN PRN Reason: Constipation Mirtazapine (Mirtazapine 15 Mg Tablet) 15 mg PO BEDTIME [facility] Last Admin: 03/06/22 21:50 Dose: 15 mg Multi-Ingred Medicated Throat [place] (Throat [place], Medicated 177 Ml Bottle) 1 spray MUCOUS MEM Q2H PRN PRN Reason: Sore Throat Last Admin: 03/04/22 00:27 Dose: 1 spray Multivitamins/Vitamin C (Multivitamin Tablet) 1 tab PO DAILY [facility] Last Admin: 03/07/22 09:18 Dose: 1 tab Naproxen (Naproxen 500 Mg Tablet) 500 mg PO Q12H PRN PRN Reason: Pain, Mild (Pain Scale 1-3) Last Admin: 03/06/22 02:18 Dose: 500 mg Tramadol HCl (Tramadol Hcl 50 Mg Tablet) 25 mg PO Q6H PRN PRN Reason: Pain, Mild (Pain Scale 1-3) Last Admin: 03/07/22 09:22 Dose: 25 mg Allergies Allergies Allergy/AdvReac Type Severity Reaction Status Date / Time Iodinated Contrast Media Allergy Intermediate Hives Verified 12/13/20 12:40 Assessment & Plan Assessment & Plan (1) MDD (major depressive disorder), recurrent episode, moderate: Status: Acute Code(s): F33.1 - Major depressive disorder, recurrent, moderate (2) PTSD (post-traumatic stress disorder): Status: Acute Code(s): F43.10 - Post-traumatic stress disorder, unspecified (3) Suicidal ideation: Status: Acute Code(s): R45.851 - Suicidal ideations (4) Cocaine use disorder: Status: Acute Code(s): F14.10 - Cocaine abuse, uncomplicated Plan 51 yo male, s/p suicide attempt via [place]. Plan: Restore previous regime- Fluoxetine, Gabapentin, Tramadol, which he reports was helpful. MVI daily Seroquel 25 mg HS and 25 mg bid prn anxiety, agitation. Repeat CBC on 03/02 (exposure monitoring s/p suicide attempt) Pt asks for CSS placement assistance. 02/28/2022: No changes to current treatment plan 03/01/2022: No changes to current plan 03/02/22: Ensure (2) TID Add Trazodone prn to standing dosage Seroquel increase to 50 mg HS 03/03/22: Increase Seroquel to 50 mg hs Increase Trazodone to 100 mg hs Sx target is sleep Throat culture, COVID testing Cepacol jessica, throat spray prn 03/05/22 Increase Mirtazapine to 30 mg HS 03/06/22: Decrease Mirtazapine to 15 mg HS Chlorpromazine 75 mg hs 03/07/22 add clonidine 0.1mg qhs for insomnia I spent minutes with the patient and/or on the patient floor today, greater than?50% of which was spent counseling/coordinating care. Patient educated on: diagnosis and medication risk/benefits Reason for contiued inpatient stay Substantial Risk for: rapid decompensation Time Spent With Patient Time: Total time managing care of this patient today ____ minutes.
[2022-03-07 17:08] VITALS: BP 134/65; PULSE 96; TEMP 36.7; O2SAT 99
[2022-03-07] MEDS: chlorproMAZINE HCl 25 MG TABLET 75 MG PO (21:03)
[2022-03-07] MEDS: cloNIDine HCL 0.1 MG TABLET PO (21:03)
[2022-03-07] MEDS: Mirtazapine 15 MG TABLET PO (21:03)
[2022-03-07] MEDS: Gabapentin 600 MG TABLET PO (21:03)
[2022-03-08] MEDS: hydrOXYzine HCL 25 MG TABLET PO (00:02)
[2022-03-08 00:03] VITALS: BP 135/80; PULSE 99
[2022-03-08 06:00] VITALS: RESP 18
[2022-03-08] MEDS: traMADoL HCL 50 MG TABLET 25 MG PO (14:28)
--- NOTE | 2022-03-08 17:39 | P.PNPSI_ITS ---
Subjective Subjective Date of Service: 03/08/22 Reason For Visit: PTSD, recurrent MOD, S/P [place]icide attempt in [place] Interim History: says woke up pissed because of noise on unit last night; talked through coping strategies; he shared that mostly he coped w/ feelings by doing pushups. Pt said hard to sleep and asks for trazodone 100mg and to get of thorazine. Mental Status Exam Mental Status Exam Narrative: Pt is alert and oriented; behavior is cooperative and calm; patient is not in distress; dressed in casual attire, bald, adequate hygiene; mood is described as pissed and affect constricted; eye contact appropriate; Speech is normal rate, volume and prosody and not pressured; no psychomotor agitation/retardation present; thought process is organized and goal directed; Thought content is on tx; otherwise pertinent to relevant topics and without any delusional content, paranoid ideations or grandiosity; intermittent SI; no HI. There is no evidence of perceptual disturbance. Patients insight and judgment appear intact. Diagnostics Vital Signs (24Hr): Vital Signs - 24 hr 03/08/22 00:03 03/08/22 06:00 Pulse Rate 99 Respiratory Rate 18 Blood Pressure 135/80 BMI result Body Mass Index 26.2 Labs Results: 02/26/22 12:18 02/27/22 08:14 Medications Medications Current Medications Acetaminophen (Acetaminophen 325 Mg Tablet) 650 mg PO Q6H PRN PRN Reason: Headache/Pain Mild Scale (1-3) Last Admin: 03/03/22 08:22 Dose: 650 mg Al Hydroxide/Mg Hydroxide (Magnesium Hydrox/Alum Hydrox 30 Ml Oral.Susp) 30 ml PO Q6H PRN PRN Reason: Heartburn/Nausea Benzocaine (Throat Lozenge, Medicated Lozenge) 1 lozenge MUCOUS MEM Q2H PRN PRN Reason: Sore Throat Last Admin: 03/04/22 18:23 Dose: 1 lozenge Chlorpromazine HCl (Chlorpromazine Hcl 25 Mg Tablet) 75 mg PO BEDTIME [facility] Last Admin: 03/07/22 21:03 Dose: 75 mg Clonidine HCl (Clonidine Hcl 0.1 Mg Tablet) 0.1 mg PO TID PRN; Protocol PRN Reason: Anxiety Last Admin: 03/08/22 00:00 Dose: 0.1 mg Clonidine HCl (Clonidine Hcl 0.1 Mg Tablet) 0.1 mg PO BEDTIME SHARON; Protocol Last Admin: 03/07/22 21:03 Dose: 0.1 mg Fluoxetine HCl (Fluoxetine Hcl 10 Mg Capsule) 10 mg PO DAILY [facility] Last Admin: 03/08/22 12:27 Dose: Not Given Gabapentin (Gabapentin 300 Mg Capsule) 300 mg PO 0900,1600 [facility] Last Admin: 03/08/22 12:27 Dose: Not Given Gabapentin (Gabapentin 600 Mg Tablet) 600 mg PO BEDTIME [facility] Last Admin: 03/07/22 21:03 Dose: 600 mg Hydroxyzine HCl (Hydroxyzine Hcl 25 Mg Tablet) 25 mg PO Q6H PRN PRN Reason: Anxiety Last Admin: 03/08/22 00:02 Dose: 25 mg Magnesium Hydroxide (Milk Of Magnesia 30 Ml Oral.Susp) 30 ml PO DAILY PRN PRN Reason: Constipation Mirtazapine (Mirtazapine 15 Mg Tablet) 15 mg PO BEDTIME [facility] Last Admin: 03/07/22 21:03 Dose: 15 mg Multi-Ingred Medicated Throat [place] (Throat [place], Medicated 177 Ml Bottle) 1 spray MUCOUS MEM Q2H PRN PRN Reason: Sore Throat Last Admin: 03/04/22 00:27 Dose: 1 spray Multivitamins/Vitamin C (Multivitamin Tablet) 1 tab PO DAILY [facility] Last Admin: 03/08/22 12:27 Dose: Not Given Naproxen (Naproxen 500 Mg Tablet) 500 mg PO Q12H PRN PRN Reason: Pain, Mild (Pain Scale 1-3) Last Admin: 03/06/22 02:18 Dose: 500 mg Tramadol HCl (Tramadol Hcl 50 Mg Tablet) 25 mg PO Q6H PRN PRN Reason: Pain, Mild (Pain Scale 1-3) Last Admin: 03/08/22 14:28 Dose: 25 mg Allergies Allergies Allergy/AdvReac Type Severity Reaction Status Date / Time Iodinated Contrast Media Allergy Intermediate Hives Verified 12/13/20 12:40 Assessment & Plan Assessment & Plan (1) MDD (major depressive disorder), recurrent episode, moderate: Status: Acute Code(s): F33.1 - Major depressive disorder, recurrent, moderate (2) PTSD (post-traumatic stress disorder): Status: Acute Code(s): F43.10 - Post-traumatic stress disorder, unspecified (3) Suicidal ideation: Status: Acute Code(s): R45.851 - Suicidal ideations (4) Cocaine use disorder: Status: Acute Code(s): F14.10 - Cocaine abuse, uncomplicated Plan 51 yo male, s/p suicide attempt via [place] Plan: Restore previous regime- Fluoxetine, Gabapentin, Tramadol, which he reports was helpful. MVI daily Seroquel 25 mg HS and 25 mg bid prn anxiety, agitation. Repeat CBC on 03/02 (exposure monitoring s/p suicide attempt) Pt asks for CSS placement assistance. 02/28/2022: No changes to current treatment plan 03/01/2022: No changes to current plan 03/02/22: Ensure (2) TID Add Trazodone prn to standing dosage Seroquel increase to 50 mg HS 03/03/22: Increase Seroquel to 50 mg hs Increase Trazodone to 100 mg hs Sx target is sleep Throat culture, COVID testing Cepacol jessica, throat spray prn 03/05/22 Increase Mirtazapine to 30 mg HS 03/06/22: Decrease Mirtazapine to 15 mg HS Chlorpromazine 75 mg hs 03/07/22 add clonidine 0.1mg qhs for insomnia 03/08/22 ADDED Trazodone 100mg qhs made Chlorpromazine prn I spent minutes with the patient and/or on the patient floor today, greater than?50% of which was spent counseling/coordinating care. Patient educated on: diagnosis and medication risk/benefits Informed Consent: understands Reason for contiued inpatient stay Substantial Risk for: rapid decompensation Time Spent With Patient Time: Total time managing care of this patient today ____ minutes.
[2022-03-08 18:00] VITALS: BP 140/79; PULSE 83; RESP 16; TEMP 36.6; O2SAT 98
[2022-03-08] MEDS: Gabapentin 300 MG CAPSULE PO (18:51)
[2022-03-08] MEDS: cloNIDine HCL 0.1 MG TABLET PO ×2 (19:12)
[2022-03-08] MEDS: Gabapentin 600 MG TABLET PO (19:12)
[2022-03-08] MEDS: traZODone HCL 100 MG TABLET PO (19:12)
[2022-03-08] MEDS: Mirtazapine 15 MG TABLET PO (19:12)
[2022-03-09 07:56] VITALS: BP 124/76; PULSE 94; RESP 16; TEMP 36.8; O2SAT 96
[2022-03-09] MEDS: Multivitamin TABLET 1 TAB PO (09:11)
[2022-03-09] MEDS: Gabapentin 300 MG CAPSULE PO ×2 (09:23→15:02)
[2022-03-09] MEDS: traMADoL HCL 50 MG TABLET 25 MG PO ×3 (09:23→22:08)
--- NOTE | 2022-03-09 15:32 | HO.PSYCHPN ---
Subjective Subjective Date of Service: 03/09/22 Reason For Visit: PTSD, recurrent MOD, S/P [place]icide attempt in [place] Subjective Notes: Conditional Voluntary Healthcare Proxy: No Guardianship: No Medical Problems Affecting Mental Status: No Interim History: Devin reports he slept well last night for the first time-Trazodone 100 mg, Mirtazapine 15 mg, Clonidine 0.1 mg. Review of medications-Fluoxetine, Chlorpromazine, Hydroxyzine discontinued, Gabapentin decreased to 300 mg bid. Pt continues to report intermittent voices, shadows and SI but is feeling on the correct path with medications at this time. Medication Compliance: Yes Side effects from medications: No Attending Groups: Intermittent Review of Systems Acute medical concerns: No Medical Review of Systems: unchanged Mental Status Exam Mental Status Exam Patient Appearance: Appropriate Patient Orientation: Person, Place, Time and Situation Level of Consciousness: Alert Patient Behavior: Appropriate, Talkative, Cooperative and Good Eye Contact Mood Description: Constricted Affect Description: Constricted Patient Cognition Impaired: No Ability to Follow Directions: Good Speech Pattern: Spontaneous Speech and Soft-Spoken Memory Description: Episodic Impaired Hallucinations: Auditory and Visual Delusions: Not Present Perceptual Disturbances: Derealization Thought Process: Rumination Thought Content: positive for [place] and positive for Suicidal Ideation Depressive Symptoms: Thoughts of /Suicide and Low Self Esteem Judgement: Fair Diagnostics Vital Signs (24Hr): Vital Signs - 24 hr 03/08/22 18:00 03/09/22 07:56 Temperature 97.8 F 98.2 F Pulse Rate 83 94 Respiratory Rate 16 16 Blood Pressure 140/79 H 124/76 Pulse Oximetry 98 96 Oxygen Delivery Method Room Air Room Air BMI result Body Mass Index 26.2 Labs Results: 02/26/22 12:18 02/27/22 08:14 Medications Medications Current Medications Acetaminophen (Acetaminophen 325 Mg Tablet) 650 mg PO Q6H PRN PRN Reason: Headache/Pain Mild Scale (1-3) Last Admin: 03/03/22 08:22 Dose: 650 mg Al Hydroxide/Mg Hydroxide (Magnesium Hydrox/Alum Hydrox 30 Ml Oral.Susp) 30 ml PO Q6H PRN PRN Reason: Heartburn/Nausea Benzocaine (Throat Lozenge, Medicated Lozenge) 1 lozenge MUCOUS MEM Q2H PRN PRN Reason: Sore Throat Last Admin: 03/04/22 18:23 Dose: 1 lozenge Clonidine HCl (Clonidine Hcl 0.1 Mg Tablet) 0.1 mg PO TID PRN; Protocol PRN Reason: Anxiety Last Admin: 03/08/22 00:00 Dose: 0.1 mg Clonidine HCl (Clonidine Hcl 0.1 Mg Tablet) 0.1 mg PO BEDTIME [facility]ON; Protocol Last Admin: 03/08/22 19:12 Dose: 0.1 mg Gabapentin (Gabapentin 300 Mg Capsule) 300 mg PO TID [facility] Last Admin: 03/09/22 15:02 Dose: 300 mg Hydroxyzine HCl (Hydroxyzine Hcl 25 Mg Tablet) 25 mg PO Q6H PRN PRN Reason: Anxiety Last Admin: 03/08/22 00:02 Dose: 25 mg Magnesium Hydroxide (Milk Of Magnesia 30 Ml Oral.Susp) 30 ml PO DAILY PRN PRN Reason: Constipation Mirtazapine (Mirtazapine 15 Mg Tablet) 15 mg PO BEDTIME [facility] Last Admin: 03/08/22 19:12 Dose: 15 mg Multi-Ingred Medicated Throat [place] (Throat [place], Medicated 177 Ml Bottle) 1 spray MUCOUS MEM Q2H PRN PRN Reason: Sore Throat Last Admin: 03/04/22 00:27 Dose: 1 spray Multivitamins/Vitamin C (Multivitamin Tablet) 1 tab PO DAILY [facility] Last Admin: 03/09/22 09:11 Dose: 1 tab Naproxen (Naproxen 500 Mg Tablet) 500 mg PO Q12H PRN PRN Reason: Pain, Mild (Pain Scale 1-3) Last Admin: 03/06/22 02:18 Dose: 500 mg Tramadol HCl (Tramadol Hcl 50 Mg Tablet) 25 mg PO Q6H PRN PRN Reason: Pain, Mild (Pain Scale 1-3) Last Admin: 03/09/22 09:23 Dose: 25 mg Trazodone HCl (Trazodone Hcl 100 Mg Tablet) 100 mg PO BEDTIME [facility] Last Admin: 03/08/22 19:12 Dose: 100 mg Trazodone HCl (Trazodone Hcl 50 Mg Tablet) 50 mg PO BEDTIME PRN PRN Reason: insomnia Allergies Allergies Allergy/AdvReac Type Severity Reaction Status Date / Time Iodinated Contrast Media Allergy Intermediate Hives Verified 12/13/20 12:40 Assessment & Plan Assessment & Plan (1) MDD (major depressive disorder), recurrent episode, moderate: Status: Acute Code(s): F33.1 - Major depressive disorder, recurrent, moderate (2) PTSD (post-traumatic stress disorder): Status: Acute Code(s): F43.10 - Post-traumatic stress disorder, unspecified (3) Suicidal ideation: Status: Acute Code(s): R45.851 - Suicidal ideations (4) Cocaine use disorder: Status: Acute Code(s): F14.10 - Cocaine abuse, uncomplicated Plan 51 yo male, s/p suicide attempt via jumping in the [employer] [place]. Plan: Restore previous regime- Fluoxetine, Gabapentin, Tramadol, which he reports was helpful. MVI daily Seroquel 25 mg HS and 25 mg bid prn anxiety, agitation. Repeat CBC on 03/02 (exposure monitoring s/p suicide attempt) Pt asks for CSS placement assistance. 02/28/2022: No changes to current treatment plan 03/01/2022: No changes to current plan 03/02/22: Ensure (2) TID Add Trazodone prn to standing dosage Seroquel increase to 50 mg HS 03/03/22: Increase Seroquel to 50 mg hs Increase Trazodone to 100 mg hs Sx target is sleep Throat culture, COVID testing Cepacol jessica, throat spray prn 03/05/22 Increase Mirtazapine to 30 mg HS 03/06/22: Decrease Mirtazapine to 15 mg HS Chlorpromazine 75 mg hs 03/07/22 add clonidine 0.1mg qhs for insomnia 03/08/22 ADDED Trazodone 100mg qhs made Chlorpromazine prn 03/09/22: Discontinue Chlorpromazine, Fluoxetine, Fluoxetine Change Gabapentin to 300 mg tid, a decrease I spent minutes with the patient and/or on the patient floor today, greater than?50% of which was spent counseling/coordinating care. Patient educated on: medication risk/benefits Informed Consent: understands and further education needed Reason for contiued inpatient stay Substantial Risk for: harm to self and rapid decompensation Time Spent With Patient Time: Total time managing care of this patient today __20__ minutes.
[2022-03-09] MEDS: cloNIDine HCL 0.1 MG TABLET PO (22:08)
[2022-03-09] MEDS: Mirtazapine 15 MG TABLET PO (22:09)
[2022-03-09] MEDS: traZODone HCL 100 MG TABLET PO (22:09)
[2022-03-09 22:10] VITALS: BP 124/83; PULSE 100; RESP 16; TEMP 36.6
[2022-03-10] MEDS: traZODone HCL 50 MG TABLET PO (00:55)
[2022-03-10] MEDS: Multivitamin TABLET 1 TAB PO (08:19)
[2022-03-10] MEDS: traMADoL HCL 50 MG TABLET 25 MG PO ×2 (08:19→21:16)
[2022-03-10] MEDS: Gabapentin 300 MG CAPSULE PO ×2 (08:19→14:00)
[2022-03-10 08:21] VITALS: BP 114/76; PULSE 86; RESP 18; TEMP 37.2; O2SAT 99
--- NOTE | 2022-03-10 16:04 | HO.PSYCHPN ---
Subjective Subjective Date of Service: 03/10/22 Reason For Visit: PTSD, recurrent MOD, [place] Subjective Notes: Conditional Voluntary Healthcare Proxy: No Guardianship: No Medical Problems Affecting Mental Status: No Interim History: Reports sleeping poorly last night. Believes it is because he asked to cut out the hs Gabapentin 600 mg. Asks to re-instate this. Other than sleep, reports he is hopeful regarding finding placment and is participating in making calls for openings. Medication Compliance: Yes Side effects from medications: No Attending Groups: Intermittent Review of Systems Acute medical concerns: No Medical Review of Systems: unchanged Mental Status Exam Mental Status Exam Patient Appearance: Appropriate Patient Orientation: Person, Place, Time and Situation Level of Consciousness: Alert Patient Behavior: Appropriate, Talkative, Cooperative and Good Eye Contact Mood Description: Constricted Affect Description: Constricted Patient Cognition Impaired: No Ability to Follow Directions: Good Speech Pattern: Spontaneous Speech and Soft-Spoken Memory Description: Episodic Impaired Hallucinations: Auditory and Visual Delusions: Not Present Perceptual Disturbances: Derealization Thought Process: Rumination Thought Content: positive for Perseveration and positive for Suicidal Ideation Depressive Symptoms: Thoughts of /Suicide and Low Self Esteem Judgement: Fair Diagnostics Vital Signs (24Hr): Vital Signs - 24 hr 03/09/22 22:10 03/10/22 08:21 Temperature 98 F 98.9 F Pulse Rate 100 86 Respiratory Rate 16 18 Blood Pressure 124/83 114/76 Pulse Oximetry 99 Oxygen Delivery Method Room Air BMI result Body Mass Index 26.2 Labs Results: 02/26/22 12:18 02/27/22 08:14 Medications Medications Current Medications Acetaminophen (Acetaminophen 325 Mg Tablet) 650 mg PO Q6H PRN PRN Reason: Headache/Pain Mild Scale (1-3) Last Admin: 03/03/22 08:22 Dose: 650 mg Al Hydroxide/Mg Hydroxide (Magnesium Hydrox/Alum Hydrox 30 Ml Oral.Susp) 30 ml PO Q6H PRN PRN Reason: Heartburn/Nausea Benzocaine (Throat Lozenge, Medicated Lozenge) 1 lozenge MUCOUS MEM Q2H PRN PRN Reason: Sore Throat Last Admin: 03/04/22 18:23 Dose: 1 lozenge Clonidine HCl (Clonidine Hcl 0.1 Mg Tablet) 0.1 mg PO TID PRN; Protocol PRN Reason: Anxiety Last Admin: 03/08/22 00:00 Dose: 0.1 mg Clonidine HCl (Clonidine Hcl 0.1 Mg Tablet) 0.1 mg PO BEDTIME SHARON; Protocol Last Admin: 03/09/22 22:08 Dose: 0.1 mg Gabapentin (Gabapentin 300 Mg Capsule) 300 mg PO TID SHARON Last Admin: 03/10/22 14:00 Dose: 300 mg Hydroxyzine HCl (Hydroxyzine Hcl 25 Mg Tablet) 25 mg PO Q6H PRN PRN Reason: Anxiety Last Admin: 03/08/22 00:02 Dose: 25 mg Magnesium Hydroxide (Milk Of Magnesia 30 Ml Oral.Susp) 30 ml PO DAILY PRN PRN Reason: Constipation Mirtazapine (Mirtazapine 15 Mg Tablet) 15 mg PO BEDTIME SHARON Last Admin: 03/09/22 22:09 Dose: 15 mg Multi-Ingred Medicated Throat [place] (Throat [place], Medicated 177 Ml Bottle) 1 spray MUCOUS MEM Q2H PRN PRN Reason: Sore Throat Last Admin: 03/04/22 00:27 Dose: 1 spray Multivitamins/Vitamin C (Multivitamin Tablet) 1 tab PO DAILY SHARON Last Admin: 03/10/22 08:19 Dose: 1 tab Naproxen (Naproxen 500 Mg Tablet) 500 mg PO Q12H PRN PRN Reason: Pain, Mild (Pain Scale 1-3) Last Admin: 03/06/22 02:18 Dose: 500 mg Tramadol HCl (Tramadol Hcl 50 Mg Tablet) 25 mg PO Q6H PRN PRN Reason: Pain, Mild (Pain Scale 1-3) Last Admin: 03/10/22 08:19 Dose: 25 mg Trazodone HCl (Trazodone Hcl 100 Mg Tablet) 100 mg PO BEDTIME SHARON Last Admin: 03/09/22 22:09 Dose: 100 mg Trazodone HCl (Trazodone Hcl 50 Mg Tablet) 50 mg PO BEDTIME PRN PRN Reason: insomnia Last Admin: 03/10/22 00:55 Dose: 50 mg Allergies Allergies Allergy/AdvReac Type Severity Reaction Status Date / Time Iodinated Contrast Media Allergy Intermediate Hives Verified 12/13/20 12:40 Assessment & Plan Assessment & Plan (1) MDD (major depressive disorder), recurrent episode, moderate: Status: Acute Code(s): F33.1 - Major depressive disorder, recurrent, moderate (2) PTSD (post-traumatic stress disorder): Status: Acute Code(s): F43.10 - Post-traumatic stress disorder, unspecified (3) Suicidal ideation: Status: Acute Code(s): R45.851 - Suicidal ideations (4) Cocaine use disorder: Status: Acute Code(s): F14.10 - Cocaine abuse, uncomplicated Plan 51 yo male, s/p suicide attempt via [place]. Plan: Restore previous regime- Fluoxetine, Gabapentin, Tramadol, which he reports was helpful. MVI daily Seroquel 25 mg HS and 25 mg bid prn anxiety, agitation. Repeat CBC on 03/02 (exposure monitoring s/p suicide attempt) Pt asks for [facility] placement assistance. 02/28/2022: No changes to current treatment plan 03/01/2022: No changes to current plan 03/02/22: Ensure (2) TID Add Trazodone prn to standing dosage Seroquel increase to 50 mg HS 03/03/22: Increase Seroquel to 50 mg hs Increase Trazodone to 100 mg hs Sx target is sleep Throat culture, COVID testing Cepacol jessica, throat spray prn 03/05/22 Increase Mirtazapine to 30 mg HS 03/06/22: Decrease Mirtazapine to 15 mg HS Chlorpromazine 75 mg hs 03/07/22 add clonidine 0.1mg qhs for insomnia 03/08/22 ADDED Trazodone 100mg qhs made Chlorpromazine prn 03/09/22: Discontinue Chlorpromazine, Fluoxetine, Fluoxetine Change Gabapentin to 300 mg tid, a decrease 03/10/22: Gabapentin 600 mg HS I spent minutes with the patient and/or on the patient floor today, greater than?50% of which was spent counseling/coordinating care. Patient educated on: medication risk/benefits Informed Consent: understands and further education needed Reason for contiued inpatient stay Substantial Risk for: rapid decompensation Time Spent With Patient Time: Total time managing care of this patient today __20__ minutes.
[2022-03-10] MEDS: Gabapentin 600 MG TABLET PO (21:19)
[2022-03-10] MEDS: cloNIDine HCL 0.1 MG TABLET PO (21:19)
[2022-03-10 21:20] VITALS: BP 154/86; PULSE 84; TEMP 35.7
[2022-03-10] MEDS: Mirtazapine 15 MG TABLET PO (21:21)
[2022-03-10] MEDS: traZODone HCL 100 MG TABLET PO (21:21)
[2022-03-11] MEDS: Gabapentin 300 MG CAPSULE PO ×3 (08:22→22:23)
[2022-03-11] MEDS: traMADoL HCL 50 MG TABLET 25 MG PO (08:22)
[2022-03-11] MEDS: Multivitamin TABLET 1 TAB PO (08:23)
[2022-03-11 08:25] VITALS: BP 135/86; PULSE 85; RESP 18; TEMP 36.5; O2SAT 98
--- NOTE | 2022-03-11 18:23 | HO.PSYCHPN ---
Subjective Subjective Date of Service: 03/11/22 Reason For Visit: PTSD, recurrent MOD, S/P Suicide attempt in [place] Subjective Notes: Conditional Voluntary Healthcare Proxy: No Guardianship: No Medical Problems Affecting Mental Status: No Interim History: Reports mood improvement. Sleep is still an issue. Reports sx of flashbacks of [place] and [place] when falling asleep. Discussed adding Risperdal, low dose, to assist with grounding of his thoughts. Reports Gabapentin increase was helpful. Discussed bringing Mirtazapine dosage back to 30 mg which he agrees with. Medication Compliance: Yes Side effects from medications: No Attending Groups: No Review of Systems Acute medical concerns: No Medical Review of Systems: unchanged Mental Status Exam Mental Status Exam Patient Appearance: Appropriate Patient Orientation: Person, Place, Time and Situation Level of Consciousness: Alert Patient Behavior: Appropriate, Talkative, Cooperative and Good Eye Contact Mood Description: Constricted Affect Description: Constricted Patient Cognition Impaired: No Ability to Follow Directions: Good Speech Pattern: Spontaneous Speech and Soft-Spoken Memory Description: Episodic Impaired Hallucinations: Auditory and Visual Delusions: Not Present Perceptual Disturbances: Depersonalization and Derealization Thought Process: Rumination Thought Content: positive for Perseveration Depressive Symptoms: Low Self Esteem Judgement: Good Diagnostics Vital Signs (24Hr): Vital Signs - 24 hr 03/10/22 21:20 03/11/22 08:25 Temperature 96.3 F L 97.7 F Pulse Rate 84 85 Respiratory Rate 18 Blood Pressure 154/86 H 135/86 Pulse Oximetry 98 Oxygen Delivery Method Room Air BMI result Body Mass Index 26.2 Labs Results: 02/26/22 12:18 02/27/22 08:14 Medications Medications Current Medications Acetaminophen (Acetaminophen 325 Mg Tablet) 650 mg PO Q6H PRN PRN Reason: Headache/Pain Mild Scale (1-3) Last Admin: 03/03/22 08:22 Dose: 650 mg Al Hydroxide/Mg Hydroxide (Magnesium Hydrox/Alum Hydrox 30 Ml Oral.Susp) 30 ml PO Q6H PRN PRN Reason: Heartburn/Nausea Benzocaine (Throat Lozenge, Medicated Lozenge) 1 lozenge MUCOUS MEM Q2H PRN PRN Reason: Sore Throat Last Admin: 03/04/22 18:23 Dose: 1 lozenge Clonidine HCl (Clonidine Hcl 0.1 Mg Tablet) 0.1 mg PO TID PRN; Protocol PRN Reason: Anxiety Last Admin: 03/08/22 00:00 Dose: 0.1 mg Clonidine HCl (Clonidine Hcl 0.1 Mg Tablet) 0.1 mg PO BEDTIME SHARON; Protocol Last Admin: 03/10/22 21:19 Dose: 0.1 mg Gabapentin (Gabapentin 300 Mg Capsule) 300 mg PO TID SHARON Last Admin: 03/11/22 14:03 Dose: 300 mg Gabapentin (Gabapentin 600 Mg Tablet) 600 mg PO BEDTIME SHARON Last Admin: 03/10/22 21:19 Dose: 600 mg Hydroxyzine HCl (Hydroxyzine Hcl 25 Mg Tablet) 25 mg PO Q6H PRN PRN Reason: Anxiety Last Admin: 03/08/22 00:02 Dose: 25 mg Magnesium Hydroxide (Milk Of Magnesia 30 Ml Oral.Susp) 30 ml PO DAILY PRN PRN Reason: Constipation Mirtazapine (Mirtazapine 30 Mg Tablet) 30 mg PO BEDTIME SHARON Multi-Ingred Medicated Throat [place] (Throat [place], Medicated 177 Ml Bottle) 1 spray MUCOUS MEM Q2H PRN PRN Reason: Sore Throat Last Admin: 03/04/22 00:27 Dose: 1 spray Multivitamins/Vitamin C (Multivitamin Tablet) 1 tab PO DAILY SHARON Last Admin: 03/11/22 08:23 Dose: 1 tab Naproxen (Naproxen 500 Mg Tablet) 500 mg PO Q12H PRN PRN Reason: Pain, Mild (Pain Scale 1-3) Last Admin: 03/06/22 02:18 Dose: 500 mg Risperidone (Risperidone 0.5 Mg Tablet) 0.5 mg PO BEDTIME SHARON Tramadol HCl (Tramadol Hcl 50 Mg Tablet) 25 mg PO Q6H PRN PRN Reason: Pain, Mild (Pain Scale 1-3) Last Admin: 03/11/22 08:22 Dose: 25 mg Trazodone HCl (Trazodone Hcl 100 Mg Tablet) 100 mg PO BEDTIME SHARON Last Admin: 03/10/22 21:21 Dose: 100 mg Trazodone HCl (Trazodone Hcl 50 Mg Tablet) 50 mg PO BEDTIME PRN PRN Reason: insomnia Last Admin: 03/10/22 00:55 Dose: 50 mg Allergies Allergies Allergy/AdvReac Type Severity Reaction Status Date / Time Iodinated Contrast Media Allergy Intermediate Hives Verified 12/13/20 12:40 Assessment & Plan Assessment & Plan (1) MDD (major depressive disorder), recurrent episode, moderate: Status: Acute Code(s): F33.1 - Major depressive disorder, recurrent, moderate (2) PTSD (post-traumatic stress disorder): Status: Acute Code(s): F43.10 - Post-traumatic stress disorder, unspecified (3) Suicidal ideation: Status: Acute Code(s): R45.851 - Suicidal ideations (4) Cocaine use disorder: Status: Acute Code(s): F14.10 - Cocaine abuse, uncomplicated Plan 51 yo male, s/p suicide attempt via jumping [place]. Plan: Restore previous regime- Fluoxetine, Gabapentin, Tramadol, which he reports was helpful. MVI daily Seroquel 25 mg HS and 25 mg bid prn anxiety, agitation. Repeat CBC on 03/02 (exposure monitoring s/p suicide attempt) Pt asks for CSS placement assistance. 02/28/2022: No changes to current treatment plan 03/01/2022: No changes to current plan 03/02/22: Ensure (2) TID Add Trazodone prn to standing dosage Seroquel increase to 50 mg HS 03/03/22: Increase Seroquel to 50 mg hs Increase Trazodone to 100 mg hs Sx target is sleep Throat culture, COVID testing Cepacol jessica, throat spray prn 03/05/22 Increase Mirtazapine to 30 mg HS 03/06/22: Decrease Mirtazapine to 15 mg HS Chlorpromazine 75 mg hs 03/07/22 add clonidine 0.1mg qhs for insomnia 03/08/22 ADDED Trazodone 100mg qhs made Chlorpromazine prn 03/09/22: Discontinue Chlorpromazine, Fluoxetine, Fluoxetine Change Gabapentin to 300 mg tid, a decrease 03/10/22: Gabapentin 600 mg HS 03/11/22: Risperdal 0.5 mg HS Increase Mirtazapine to 30 mg hs I spent minutes with the patient and/or on the patient floor today, greater than?50% of which was spent counseling/coordinating care. Patient educated on: medication risk/benefits and therapeutic strategies Informed Consent: understands and further education needed Reason for contiued inpatient stay Substantial Risk for: rapid decompensation Time Spent With Patient Time: Total time managing care of this patient today __20__ minutes.
[2022-03-11 19:17] VITALS: BP 136/67; PULSE 93; RESP 96; TEMP 37.3; O2SAT 97
[2022-03-11 22:19] VITALS: BP 158/92
[2022-03-11] MEDS: cloNIDine HCL 0.1 MG TABLET PO (22:23)
[2022-03-11] MEDS: risperiDONE 0.5 MG TABLET PO (22:23)
[2022-03-11] MEDS: Mirtazapine 30 MG TABLET PO (22:23)
[2022-03-11] MEDS: Gabapentin 600 MG TABLET PO (22:23)
[2022-03-11] MEDS: traZODone HCL 100 MG TABLET PO (22:26)
[2022-03-12] MEDS: traMADoL HCL 50 MG TABLET 25 MG PO ×2 (08:15→21:56)
[2022-03-12] MEDS: Gabapentin 300 MG CAPSULE PO ×2 (08:15→21:58)
[2022-03-12] MEDS: Multivitamin TABLET 1 TAB PO (08:15)
[2022-03-12 08:18] VITALS: BMI 26.4
[2022-03-12 09:38] VITALS: BP 131/77; PULSE 77; RESP 18; TEMP 36.3; O2SAT 94
[2022-03-12 18:00] VITALS: BP 136/75; PULSE 95; RESP 18; TEMP 36.6; O2SAT 98
--- NOTE | 2022-03-12 18:20 | HO.PSYCHPN ---
Subjective Subjective Date of Service: 03/12/22 Reason For Visit: PTSD, recurrent MOD, S/P Suicide attempt in [place] Subjective Notes: Conditional Voluntary Healthcare Proxy: No Guardianship: No Medical Problems Affecting Mental Status: No Interim History: Discharge 03/13. Refusing medications. Refusing placement option offered in [place]. Accusatory of team not making effort to get him into [facility]. Discussed with team, [facility] and [facility]. They have no availability currently. Pt is on a wait list with [facility]-it will be mid March. Provocative per team with a younger female patient. Medication Compliance: Intermittent Side effects from medications: No Attending Groups: Intermittent Review of Systems Acute medical concerns: No Medical Review of Systems: unchanged Mental Status Exam Mental Status Exam Patient Appearance: Appropriate Patient Orientation: Person, Place, Time and Situation Level of Consciousness: Alert Patient Behavior: Appropriate, Talkative, Cooperative and Good Eye Contact Mood Description: Constricted Affect Description: Constricted Patient Cognition Impaired: No Ability to Follow Directions: Good Speech Pattern: Spontaneous Speech and Soft-Spoken Memory Description: Episodic Impaired Hallucinations: Auditory and Visual Delusions: Not Present Perceptual Disturbances: Depersonalization and Derealization Thought Process: Rumination Thought Content: positive for Perseveration Depressive Symptoms: Low Self Esteem Judgement: Good Diagnostics Vital Signs (24Hr): Vital Signs - 24 hr 03/11/22 19:17 03/11/22 22:19 03/12/22 09:38 Temperature 99.1 F 97.3 F Pulse Rate 93 77 Respiratory Rate 96 H 18 Blood Pressure 136/67 158/92 H 131/77 Pulse Oximetry 97 94 Oxygen Delivery Method Room Air Room Air BMI result Body Mass Index 26.4 Labs Results: 02/26/22 12:18 02/27/22 08:14 Medications Medications Current Medications Acetaminophen (Acetaminophen 325 Mg Tablet) 650 mg PO Q6H PRN PRN Reason: Headache/Pain Mild Scale (1-3) Last Admin: 03/03/22 08:22 Dose: 650 mg Al Hydroxide/Mg Hydroxide (Magnesium Hydrox/Alum Hydrox 30 Ml Oral.Susp) 30 ml PO Q6H PRN PRN Reason: Heartburn/Nausea Benzocaine (Throat Lozenge, Medicated Lozenge) 1 lozenge MUCOUS MEM Q2H PRN PRN Reason: Sore Throat Last Admin: 03/04/22 18:23 Dose: 1 lozenge Clonidine HCl (Clonidine Hcl 0.1 Mg Tablet) 0.1 mg PO TID PRN; Protocol PRN Reason: Anxiety Last Admin: 03/08/22 00:00 Dose: 0.1 mg Clonidine HCl (Clonidine Hcl 0.1 Mg Tablet) 0.1 mg PO BEDTIME SHARON; Protocol Last Admin: 03/11/22 22:23 Dose: 0.1 mg Gabapentin (Gabapentin 300 Mg Capsule) 300 mg PO TID SHARON Last Admin: 03/12/22 14:34 Dose: Not Given Gabapentin (Gabapentin 600 Mg Tablet) 600 mg PO BEDTIME SHARON Last Admin: 03/11/22 22:23 Dose: 600 mg Hydroxyzine HCl (Hydroxyzine Hcl 25 Mg Tablet) 25 mg PO Q6H PRN PRN Reason: Anxiety Last Admin: 03/08/22 00:02 Dose: 25 mg Magnesium Hydroxide (Milk Of Magnesia 30 Ml Oral.Susp) 30 ml PO DAILY PRN PRN Reason: Constipation Mirtazapine (Mirtazapine 30 Mg Tablet) 30 mg PO BEDTIME SHARON Last Admin: 03/11/22 22:23 Dose: 30 mg Multi-Ingred Medicated Throat [place] (Throat [place], Medicated 177 Ml Bottle) 1 spray MUCOUS MEM Q2H PRN PRN Reason: Sore Throat Last Admin: 03/04/22 00:27 Dose: 1 spray Multivitamins/Vitamin C (Multivitamin Tablet) 1 tab PO DAILY SHARON Last Admin: 03/12/22 08:15 Dose: 1 tab Naproxen (Naproxen 500 Mg Tablet) 500 mg PO Q12H PRN PRN Reason: Pain, Mild (Pain Scale 1-3) Last Admin: 03/06/22 02:18 Dose: 500 mg Risperidone (Risperidone 0.5 Mg Tablet) 0.5 mg PO BEDTIME SHARON Last Admin: 03/11/22 22:23 Dose: 0.5 mg Tramadol HCl (Tramadol Hcl 50 Mg Tablet) 25 mg PO Q6H PRN PRN Reason: Pain, Mild (Pain Scale 1-3) Last Admin: 03/12/22 08:15 Dose: 25 mg Trazodone HCl (Trazodone Hcl 100 Mg Tablet) 100 mg PO BEDTIME SHARON Last Admin: 03/11/22 22:26 Dose: 100 mg Trazodone HCl (Trazodone Hcl 50 Mg Tablet) 50 mg PO BEDTIME PRN PRN Reason: insomnia Last Admin: 03/10/22 00:55 Dose: 50 mg Allergies Allergies Allergy/AdvReac Type Severity Reaction Status Date / Time Iodinated Contrast Media Allergy Intermediate Hives Verified 12/13/20 12:40 Assessment & Plan Assessment & Plan (1) MDD (major depressive disorder), recurrent episode, moderate: Status: Acute Code(s): F33.1 - Major depressive disorder, recurrent, moderate (2) PTSD (post-traumatic stress disorder): Status: Acute Code(s): F43.10 - Post-traumatic stress disorder, unspecified (3) Suicidal ideation: Status: Acute Code(s): R45.851 - Suicidal ideations (4) Cocaine use disorder: Status: Acute Code(s): F14.10 - Cocaine abuse, uncomplicated Plan 51 yo male, s/p suicide attempt via jumping [place]. Plan: Restore previous regime- Fluoxetine, Gabapentin, Tramadol, which he reports was helpful. MVI daily Seroquel 25 mg HS and 25 mg bid prn anxiety, agitation. Repeat CBC on 03/02 (exposure monitoring s/p suicide attempt) Pt asks for [facility] placement assistance. 02/28/2022: No changes to current treatment plan 03/01/2022: No changes to current plan 03/02/22: Ensure (2) TID Add Trazodone prn to standing dosage Seroquel increase to 50 mg HS 03/03/22: Increase Seroquel to 50 mg hs Increase Trazodone to 100 mg hs Sx target is sleep Throat culture, COVID testing Cepacol jessica, throat spray prn 03/05/22 Increase Mirtazapine to 30 mg HS 03/06/22: Decrease Mirtazapine to 15 mg HS Chlorpromazine 75 mg hs 03/07/22 add clonidine 0.1mg qhs for insomnia 03/08/22 ADDED Trazodone 100mg qhs made Chlorpromazine prn 03/09/22: Discontinue Chlorpromazine, Fluoxetine, Fluoxetine Change Gabapentin to 300 mg tid, a decrease 03/10/22: Gabapentin 600 mg HS 03/11/22: Risperdal 0.5 mg HS Increase Mirtazapine to 30 mg hs 03/12/22: Discharge 03/13/22. Pt refusing interventions at this time. Patient educated on: medication risk/benefits, substance abuse and therapeutic strategies Informed Consent: understands and further education needed Reason for contiued inpatient stay Substantial Risk for: rapid decompensation Time Spent With Patient Time: Total time managing care of this patient today 45____ minutes.
[2022-03-12] MEDS: cloNIDine HCL 0.1 MG TABLET PO (21:56)
[2022-03-12] MEDS: traZODone HCL 100 MG TABLET PO (21:58)
[2022-03-12] MEDS: risperiDONE 0.5 MG TABLET PO (21:58)
[2022-03-12] MEDS: Gabapentin 600 MG TABLET PO (21:58)
[2022-03-12] MEDS: Mirtazapine 30 MG TABLET PO (21:59)
[2022-03-13 08:12] VITALS: BP 146/96; PULSE 88; RESP 16; TEMP 36.6; O2SAT 99
[2022-03-13] MEDS: Multivitamin TABLET 1 TAB PO (08:41)
[2022-03-13] MEDS: Gabapentin 300 MG CAPSULE PO (08:41)
--- NOTE | 2022-03-13 12:06 | PM.PSYDC ---
DS: Providers Provider Date of Service: 03/13/22 Date of admission: 02/26/22 16:08 Date of discharge: 03/13/22 Primary care physician: Yun Padilla MD Admitting clinician: Anabel Bobby Attending physician on admission: Adrián Guzman Attending physician on discharge: Adrián Guzman Discharging clinician: Anabel Bobby DS: Diagnosis Discharge Diagnosis (1) MDD (major depressive disorder), recurrent episode, moderate: Status: Acute (2) PTSD (post-traumatic stress disorder): Status: Acute (3) Suicidal ideation: Status: Resolved (4) Cocaine use disorder: Status: Acute DS: Medications Discharge Medications Home Medications: Previous Rx's Medication Instructions Recorded clonidine HCl 0.1 mg tablet 0.1 mg PO BEDTIME #7 tabs 03/12/22 clonidine HCl 0.1 mg tablet 0.1 mg PO TID PRN Anxiety #21 tabs 03/12/22 famotidine 20 mg tablet (Pepcid) 20 mg PO BID 5 days #60 tabs 03/12/22 gabapentin 300 mg capsule 300 mg PO TID #21 caps 03/12/22 gabapentin 600 mg tablet 600 mg PO BEDTIME #7 tabs 03/12/22 hydroxyzine HCl 25 mg tablet 25 mg PO Q6H PRN Anxiety #14 tabs 03/12/22 mirtazapine 30 mg tablet 30 mg PO BEDTIME #7 tabs 03/12/22 multivitamin (Daily-Liza tablet) 1 tab PO DAILY #30 tabs 03/12/22 naloxone 4 mg/actuation nasal 4 mg intranasal Q2M PRN opioid 03/12/22 spray (Narcan) overdose #2 ea naproxen 500 mg tablet 500 mg PO Q12H PRN Pain, Mild 03/12/22 (Pain Scale 1-3) #7 tabs risperidone 0.5 mg tablet 0.5 mg PO BEDTIME #7 tabs 03/12/22 trazodone 100 mg tablet 100 mg PO BEDTIME #7 tabs 03/12/22 trazodone 50 mg tablet 50 mg PO BEDTIME PRN Insomnia #7 03/12/22 tabs Mental Status Exam Mental Status Exam Patient Appearance: Appropriate Patient Orientation: Person, Place, Time and Situation Level of Consciousness: Alert Patient Behavior: Appropriate, Talkative, Cooperative and Good Eye Contact Mood Description: Constricted Affect Description: Constricted Patient Cognition Impaired: No Ability to Follow Directions: Good Speech Pattern: Spontaneous Speech and Soft-Spoken Memory Description: Episodic Impaired Hallucinations: Auditory and Visual Delusions: Not Present Perceptual Disturbances: Depersonalization and Derealization Thought Process: Rumination Thought Content: positive for Perseveration Depressive Symptoms: Low Self Esteem Judgement: Good Data Data Completed and Pending Completed studies during hospitalization [Text1]: 03/03/22 18:00 Throat Throat Culture - Final No Group A Beta-hemolytic Streptococci isolated. DS: Summary Hospital Course Hospital Course: Admission to adult psychiatry for exacerbation of symptoms of major depression s/p suicide attempt, PTSD, Polysubstance Use Disorder. Pt struggled with sleep during this admission, however, regime was adjusted to facilitate symptom relief. Pt was accepted to [facility] however refused this referral. As a result he was discharged with a care home referral and out patient care. Time spent discussing smoking cessation with patient: 3 to 10 minutes Status at Discharge Functional status at discharge: independent ambulation Overall status at discharge: patient is back to baseline Time Spent with Patient Time attestation: Total time managing care of this patient today ____ minutes. 35 Time spent: Greater than 30 minutes Discharge Plan Discharge Anticipated Discharge Date/Time: 03/13/22 09:28 Patient Disposition: Intermediate Discharge Diagnosis: PTSD Major Depression, Recurrent Polysubstance Use Disorder Referrals: [facility] [Other] - Tomorrow (Referral for [facility] Patient placed on wait list for admission to their co-occurring substance use treatment program) [facility] [Other] - Tomorrow (Referral to [facility] Patient may follow-up on referral after discharge) [facility] [Other] - Tomorrow (Referral to Gianna Winton [facility] ) [facility] [Other] - Tomorrow (Referral to [facility] Patient accepted but declines admission to program. Patient may follow-up with program should he reconsider attending substance use treatment.) [facility] [Other] - Tomorrow (Intermediate resource information) [facility] [Other] - Tomorrow (Intermediate Resource Information.) [facility]Other[facility] - 1 Week (Intermediate Resource Information) [facility] Living Room [Other] - 1 Week ([facility] Living Room Information.) [facility] [Other] - 03/24/22 11:00 am (Outpatient therapy and psychiatry intake Patient also has been referred for CSP worker.) Yun Padilla MD [Primary Care Provider] - 1 Week (Pt to follow up with PCP after discharge.PT. NEEDS TO CALL [facility] [phone] TO PICK NEW PROVIDER. DR. PADILLA NO LONGER THERE. PT. NOT ACTUALLY A PT. THERE HE HAD 2 NO SHOWS APPOINTMENTS.) Discharge Medications: New multivitamin [Daily-Liza] Tablet 1 tab PO DAILY Qty: 30 0RF clonidine HCl 0.1 mg Tablet 0.1 mg PO TID PRN (Reason: Anxiety) Qty: 21 4RF Protocol: Hold for SBP< HOLD for SBP < : 90 clonidine HCl 0.1 mg Tablet 0.1 mg PO BEDTIME Qty: 7 4RF Protocol: Hold for SBP< HOLD for SBP < : 90 gabapentin 600 mg Tablet 600 mg PO BEDTIME Qty: 7 4RF trazodone 100 mg Tablet 100 mg PO BEDTIME Qty: 7 4RF mirtazapine 30 mg Tablet 30 mg PO BEDTIME Qty: 7 4RF hydroxyzine HCl 25 mg Tablet 25 mg PO Q6H PRN (Reason: Anxiety) Qty: 14 4RF risperidone 0.5 mg Tablet 0.5 mg PO BEDTIME Qty: 7 4RF naproxen 500 mg Tablet 500 mg PO Q12H PRN (Reason: Pain, Mild (Pain Scale 1-3)) Qty: 7 4RF Continued trazodone 50 mg Tablet 50 mg PO BEDTIME PRN (Reason: Insomnia) Qty: 7 4RF famotidine [Pepcid] 20 mg tablet 20 mg PO BID 5 Days Qty: 60 0RF gabapentin 300 mg Capsule 300 mg PO TID Qty: 21 4RF naloxone [Narcan] 4 mg/actuation spray,non-aerosol 4 mg intranasal Q2M PRN (Reason: opioid overdose) Qty: 2 0RF Rx Instructions: spray 1 dose into ONE nostril; alternate nostrils w each dose until help arrives Discontinued clonidine HCl 0.1 mg Tablet 0.1 mg PO TID PRN (Reason: Anxiety) Qty: 30 0RF Protocol: Hold for SBP< HOLD for SBP < : 90 fluoxetine 10 mg Capsule 10 mg PO DAILY Qty: 30 0RF naproxen 500 mg Tablet 500 mg PO BID PRN (Reason: pain) Qty: 60 0RF Discharge Orders: Discharge Order (Routine); Ordered 03/13/22 Ordered By: Anabel Bobby Diet: Advance to usual diet Activity on Discharge: As tolerated Stand Alone Forms: Patient Portal Discharge page, Community Support Care Plan Goals: Maintain mood and safe behaviors Take medications as directed Practice coping skills Follow up with out patient providers Health Concerns: Stable mood and behaviors Plan of Treatment: Follow up with out patient providers Take medications as directed Assessment: non psychotic non manic non suicidal non homicidal Discharge Date/Time: 03/13/22 10:48
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
== END 2022-03-13 10:48 | disposition home or self-care (01) | DRG 751 ==
LOC: HO.ED 13:50 → HO.PM5 16:13
PROVIDERS: Physician Assistant Medical; Admitting Provider Psychiatry & Neurology Psychiatry; Emergency Provider Emergency Medicine; PCP Internal Medicine; Visit Provider Clinical Nurse Specialist Psychiatric/Mental Health, Adult
DX: F33.1 Major depressive disorder, recurrent, moderate (principal); R45.851 Suicidal ideations; Z91.14 Patient's other noncompliance with medication regimen; F14.10 Cocaine abuse, uncomplicated; F17.210 Nicotine dependence, cigarettes, uncomplicated; F43.10 Post-traumatic stress disorder, unspecified; Z56.0 Unemployment, unspecified; Z20.822 Contact with and (suspected) exposure to COVID-19; Z91.51 Personal history of suicidal behavior; Z71.6 Tobacco abuse counseling; Z91.041 Radiographic dye allergy status; Z79.899 Other long term (current) drug therapy
CPT/HCPCS: 0241U; 36415; 80053; 80061; 80307; 81003; 82077; 82607; 82746; 83036; 83735; 84132; 84439; 84443; 85025; 87070; 87635; 93005; 99285

== ENCOUNTER 2022-03-14 09:45 | Emergency (ER) | payer OTHER, SELFPAY ==
[2022-03-14 09:48] VITALS: BP 156/99; PULSE 100; RESP 18; TEMP 37.1; O2SAT 100; BMI 26.0
--- NOTE | 2022-03-14 09:56 | ED.GENADULT ---
HPI - General Adult General Chief complaint: Psychiatric Symptoms Stated complaint: crisis Time Seen by Provider: 03/14/22 09:56 Source: patient Mode of arrival: ambulatory Limitations: no limitations History of Present Illness HPI narrative: Patient is a 51 year old assigned male at with a history of MDD and PTSD presenting to the emergency department today with increased anxiety and SI. Patient states that he was discharged from [facility] yesterday and now he is having increased anxiety and SI. Patient denies any dizziness, lightheadedness, abdominal pain, nausea, vomiting, fever, chills, blurry vision, double vision, loss of vision, chest pain, difficulty breathing, shortness of breath, back pain, night sweats, pain with urination, increased urinary frequency, increased urinary urgency, blood in his urine or stool, syncope or a near syncopal episode, recent trauma or falls, bowel incontinence, bladder incontinence, bowel retention, bladder retention, or any other complaints at this time. Onset (ago): hour(s) Severity: mild Severity scale (1-10): 3 Relieving factors: none Exacerbating factors: none Associated symptoms: denies other symptoms Treatments prior to arrival: none Related Data Previous Rx's Medication Instructions Recorded clonidine HCl 0.1 mg tablet 0.1 mg PO BEDTIME #7 tabs 03/12/22 clonidine HCl 0.1 mg tablet 0.1 mg PO TID PRN Anxiety #21 tabs 03/12/22 famotidine 20 mg tablet (Pepcid) 20 mg PO BID 5 days #60 tabs 03/12/22 gabapentin 300 mg capsule 300 mg PO TID #21 caps 03/12/22 gabapentin 600 mg tablet 600 mg PO BEDTIME #7 tabs 03/12/22 hydroxyzine HCl 25 mg tablet 25 mg PO Q6H PRN Anxiety #14 tabs 03/12/22 mirtazapine 30 mg tablet 30 mg PO BEDTIME #7 tabs 03/12/22 multivitamin (Daily-Liza tablet) 1 tab PO DAILY #30 tabs 03/12/22 naloxone 4 mg/actuation nasal 4 mg intranasal Q2M PRN opioid 03/12/22 spray (Narcan) overdose #2 ea naproxen 500 mg tablet 500 mg PO Q12H PRN Pain, Mild 03/12/22 (Pain Scale 1-3) #7 tabs risperidone 0.5 mg tablet 0.5 mg PO BEDTIME #7 tabs 03/12/22 trazodone 100 mg tablet 100 mg PO BEDTIME #7 tabs 03/12/22 trazodone 50 mg tablet 50 mg PO BEDTIME PRN Insomnia #7 03/12/22 tabs Allergies Allergy/AdvReac Type Severity Reaction Status Date / Time Iodinated Contrast Media Allergy Intermediate Hives Verified 12/13/20 12:40 Review of Systems Constitutional: Constitutional: Reports no additional constitutional complaints, Denies chills, Denies fever(s) and Denies night sweats Eyes: Eyes: Reports no additional eye complaints, Denies blurry vision, Denies change in vision, Denies diplopia, Denies eye discharge, Denies loss of vision and Denies eye pain ENT: Denies dizziness Cardiovascular: Cardiovascular: Reports no additional cardiovascular complaints, Denies chest pain, Denies lightheadedness, Denies Loss of Consciousness and Denies dyspnea Respiratory: Respiratory: Reports no additional respiratory complaints and Denies dyspnea Gastrointestinal: Gastrointestinal: Reports no additional gastrointestinal complaints, Denies abdominal pain, Denies melena, Denies hematochezia, Denies change in bowel habits and Denies change in stool character Genitourinary: Genitourinary: Reports no additional male genitourinary complaints, Denies hematuria, Denies oliguria, Denies difficulty urinating, Denies dysuria, Denies urinary frequency, Denies urinary hesitancy, Denies urinary incontinence and Denies urinary urgency Musculoskeletal: Musculoskeletal: Reports no additional musculoskeletal complaints, Denies numbness and Denies tingling Neurologic: Denies dizziness, Denies loss of vision, Denies numbness and Denies tingling Psychiatric: Psychiatric: Reports no additional psychiatric complaints, Reports anxiety and Reports suicidal ideation Endocrine: Endocrine: Reports no additional endocrine complaints Hematologic/Lymphatic: Hematologic/Lymphatic: Reports no additional hematologic/lymphatic complaints Allergic/Immunologic: Allergic/Immunologic: Reports no additional allergic/immunologic complaints PMFSH Past Medical History Attestation statement: The following information was validated with the patient. Source: old records reviewed and nursing notes reviewed Medical History Cocaine use disorder No known health problems Social History Social History Household Members: None Housing: Homeless Do you presently have visiting nurse or other home services: No Alcohol intake: unknown Patient Tobacco Use Status: Current everyday Tobacco user Tobacco use type: Cigarette Cigarettes Per Day: 3 e-Cigarette/Vaping Use: Currently Using Second Hand Smoke Exposure: No Substance Use Type: Crack/Cocaine Advance Directives: No Advance Directives Information Provided: No service: No Sexual orientation: Straight/Heterosexual Physical Exam ED Vital Signs: Vital Signs - 24 hr 03/14/22 09:48 Temperature 98.7 F Pulse Rate 100 Respiratory Rate 18 Blood Pressure 156/99 H Pulse Oximetry 100 Oxygen Delivery Method Room Air BMI result Body Mass Index 26.0 Const General: cooperative, no acute distress, alert and awake Nutritional Appearance: well nourished Orientation/consciousness: patient oriented x3 Limitations: no limitations HENMT Head: Yes normal to inspection and Yes atraumatic Ears: hearing grossly normal bilaterally and external ears normal General nose exam: Normal external nose present, no nasal discharge noted and no epistaxis Face and sinus: Yes normal facial exam, No abrasion and No laceration Mouth: Normal oral and palatal mucosa present, no drooling and no muffled voice Eyes General: appearance normal, both eyes and all related structures Periorbital: periorbital findings normal Eyelids: Yes eyelids normal Conjunctivae: conjunctivae normal Pupils: Equal, round and reactive pupils present EOM: EOMs intact bilaterally Neck Neck: Yes normal visual inspection, Yes full ROM and Yes no lymphadenopathy Chest Chest palpation & inspection: normal inspection of the chest Resp Effort & Inspection: normal respiratory effort and able to speak in complete sentences Auscultation: clear to auscultation bilaterally Cardio Rate: regular rate Rhythm: regular rhythm GI Inspection: Yes normal to inspection Neuro General: patient oriented x3 and moves all extremities Cranial nerves: Yes Equal, round and reactive pupils present Cognition (Neuro): normal cognition Motor exam (neuro): 5/5 motor strength present throughout Sensory Exam: Normal double simultaneous stimulation for sensation Coordination: [id number] test normal Extrem General: Yes normal to inspection, Yes full ROM and Yes capillary refill normal Psych Appearance: grossly normal Mental Status: mental status grossly normal Affect: normal affect Attitude: cooperative Thought process: Normal thought process present Thought content: Normal thought content present Insight: Good insight present (Psych) Medical Decision Making Medical Decision Making MDM Narrative: Patient is a 51 year old assigned male at with a history of MDD and PTSD presenting to the emergency department today with increased anxiety. Patient's physical exam was unremarkable. Patient's blood work showed an elevated WBC count of 21.6 however, I attribute this to a stress reaction. Patient has had similar elevations of WBC counts in the past. Patient's chest x-ray showed no acute process. I explained my physical exam findings as well as all test results to the patient. I answered all questions asked by the patient. Patient was evaluated by N who recommended discharge. I stressed the importance of the patient taking his medication as prescribed. I stressed the importance of the patient following up with his primary care provider. I stressed the importance of the patient returning to the emergency department immediately if his symptoms were to worsen or if he were to develop any dizziness, shortness of breath, difficulty breathing, chest pain, blurry vision, loss of vision, nausea, vomiting, abdominal pain, fever, chills, back pain, or any other complaints. Patient verbalized agreement and understanding with this treatment plan and discharge. Differential Diagnosis Differential Diagnoses: The differential diagnosis associated with the presentation includes MDD, PTSD Lab Data MDM Lab Attestation statement: I reviewed the patient's lab results. Result Diagrams: 03/14/22 10:49 03/14/22 10:49 Labs: Lab Results 03/14/22 03/14/22 03/14/22 Range/Units 10:49 10:49 10:49 WBC 21.6 H (4.8-10.8) X10*3/uL RBC 5.41 (4.60-5.80) X10*6/uL Hgb 15.0 (14.0-18.0) g/dl Hct 45.6 (42.0-52.0) % MCV 84.3 (80.0-98.0) fL MCH 27.7 (27.0-33.0) pg MCHC 32.9 (31.0-36.0) g/dl RDW 15.7 (11.0-16.0) % Plt Count 488 H (160-400) X10*3/uL MPV 9.1 L (9.4-12.4) fL Immature Gran % (Auto) 1.4 H (0.0-0.4) % Neut % (Auto) 82.7 H (45-73) % Lymph % (Auto) 10.8 L (20-40) % [place] % (Auto) 4.2 (2-11) % Eos % (Auto) 0.4 (0-4) % Baso % (Auto) 0.5 (0-2) % Lymph # (Auto) 2.3 (1.2-4.9) X10*3/uL [place] # (Auto) 0.9 (0.1-1.2) X10*3/uL Eos # (Auto) 0.1 (0.0-0.4) X10*3/uL Baso # (Auto) 0.1 (0.0-0.2) X10*3/uL Abs Immat Gran (auto) 0.30 H (0.00-0.03) X10*3/uL Absolute Neuts (auto) 17.9 H (2.0-8.3) x10*3/uL Absolute Nucleated RBC 0.000 (0.0-0.012) X10*3/uL Nucleated RBC % (auto) 0.0 (0.0-0.2) /100WBC Sodium 141 (135-145) mmol/L Potassium 4.7 (3.3-5.1) mmol/L Chloride 103 (96-108) mmol/L Carbon Dioxide 31 H (22-29) mmol/L Anion Gap 12 (12-20) BUN 21 H (9-16) mg/dL Creatinine 0.91 (0.5-1.4) mg/dL Estim Creat Clear Calc 92.9 Estimated GFR > 60 Random Glucose 93 D (60-115) mg/dL Calcium 9.6 (8.4-10.2) mg/dL Total Bilirubin 0.8 (0.0-1.0) mg/dL AST 22 D (5-37) U/L ALT 82 H (0-40) U/L Alkaline Phosphatase 76 (39-117) U/L Total Protein 7.0 (6.5-8.0) g/dL Albumin 4.1 (3.5-5.0) g/dL Salicylates < 5.0 L (15-30) mg/dL Acetaminophen < 1 (<30) mcg/mL Ethyl Alcohol < 10 mg/dL COVID-19 ([facility]BEY) Negative (Negative) COVID-19 Clin Com See Note Radiology Impression Discussion of test interpretation with radiology: I have reviewed the radiologist's reading. Radiologist Impression: EXAMINATION: XR CHEST CLINICAL INFORMATION: Cough. COMPARISON: Chest done on 12/10/2020. TECHNIQUE: Frontal view of the chest was obtained. FINDINGS: No significant abnormality is noted involving the heart, lungs, mediastinum, bony thorax or soft tissues. XR/XR chest 1V IMPRESSION: Unremarkable examination. Dictated By: Joe Mills MD Signed By: Electronically signed by Joe Mills MD 03/14/22 0628 Discharge Plan Discharge Clinical Impression: MDD (major depressive disorder), recurrent episode, moderate Patient Disposition: Home, Self-Care Instructions: Depression (ED) Additional Instructions: Follow up with your primary care provider. Return to the emergency department immediately if your symptoms worsen or if you develop any dizziness, shortness of breath, difficulty breathing, chest pain, blurry vision, loss of vision, nausea, vomiting, abdominal pain, fever, chills, back pain, or any other complaints. Prescriptions: No Action multivitamin [Daily-Liza] Tablet 1 tab PO DAILY Qty: 30 0RF clonidine HCl 0.1 mg Tablet 0.1 mg PO TID PRN (Reason: Anxiety) Qty: 21 4RF Protocol: Hold for SBP< HOLD for SBP < : 90 clonidine HCl 0.1 mg Tablet 0.1 mg PO BEDTIME Qty: 7 4RF Protocol: Hold for SBP< HOLD for SBP < : 90 gabapentin 600 mg Tablet 600 mg PO BEDTIME Qty: 7 4RF trazodone 100 mg Tablet 100 mg PO BEDTIME Qty: 7 4RF mirtazapine 30 mg Tablet 30 mg PO BEDTIME Qty: 7 4RF hydroxyzine HCl 25 mg Tablet 25 mg PO Q6H PRN (Reason: Anxiety) Qty: 14 4RF risperidone 0.5 mg Tablet 0.5 mg PO BEDTIME Qty: 7 4RF naproxen 500 mg Tablet 500 mg PO Q12H PRN (Reason: Pain, Mild (Pain Scale 1-3)) Qty: 7 4RF trazodone 50 mg Tablet 50 mg PO BEDTIME PRN (Reason: Insomnia) Qty: 7 4RF famotidine [Pepcid] 20 mg tablet 20 mg PO BID 5 Days Qty: 60 0RF gabapentin 300 mg Capsule 300 mg PO TID Qty: 21 4RF naloxone [Narcan] 4 mg/actuation spray,non-aerosol 4 mg intranasal Q2M PRN (Reason: opioid overdose) Qty: 2 0RF Rx Instructions: spray 1 dose into ONE nostril; alternate nostrils w each dose until help arrives Referrals: [facility] [Other] Interventions: [place]-Suicide Risk Severity Scale Last Done: 03/14/22 09:51 ED Discharge Assessment Last Done: 03/14/22 14:29 Discharge Date/Time: 03/14/22 14:40 Print Language: Occitan
--- NOTE | 2022-03-14 10:17 | PC.NURSE ---
supplemental triage note: patient states had prev argument w mothers bf/ and cannot stay there, prior to yesterdays admission client had had breakup w sig other and that had made him suicidal. client denies drug use concurs that he's having CAH to kill self by hanging.
[2022-03-14 10:52] LABS: MANUAL DIFF FLAG NO
[2022-03-14 10:55] LABS: Basophils Absolute Auto 0.1 X10*3/uL (0.0-0.2); Basophils Percent Auto 0.5 % (0-2); Eosinophils Absolute Auto 0.1 X10*3/uL (0.0-0.4); Eosinophils Percent Auto 0.4 % (0-4); Hematocrit 45.6 % (42.0-52.0); Imm Gran Pct Auto 1.4 % (0.0-0.4); Lymphocytes Absolute Auto 2.3 X10*3/uL (1.2-4.9); Lymphocytes Percent Auto 10.8 % (20-40); Mean Corpuscular HGB Conc 32.9 g/dl (31.0-36.0); Mean Corpuscular Hemoglobin 27.7 pg (27.0-33.0); Mean Corpuscular Volume 84.3 fL (80.0-98.0); Mean Platelet Volume 9.1 fL (9.4-12.4); Monocytes Absolute Auto 0.9 X10*3/uL (0.1-1.2); Monocytes Percent Auto 4.2 % (2-11); Neutrophils Absolute Auto 17.9 x10*3/uL (2.0-8.3); Neutrophils Percent Auto 82.7 % (45-73); Platelet Count 488 X10*3/uL (160-400); Red Blood Count 5.41 X10*6/uL (4.60-5.80); Red Cell Distribution Width 15.7 % (11.0-16.0); White Blood Count 21.6 X10*3/uL (4.8-10.8)
--- NOTE | 2022-03-14 11:08 | MHC.CARE ---
Care Team completed [facility] smart sheet.
[2022-03-14 11:12] LABS: COVID-19 Test Negative (Negative); IDNOW Serial# 16C4AD1C
[2022-03-14 11:29] LABS: Acetaminophen LAB < 1 mcg/mL (<30); Alanine Aminotransferase 82 U/L (0-40); Albumin Level 4.1 g/dL (3.5-5.0); Alkaline Phosphatase 76 U/L (39-117); Anion Gap 12 (12-20); Aspartate Amino Transferase 22 U/L (5-37); Bilirubin Total 0.8 mg/dL (0.0-1.0); Blood Urea Nitrogen 21 mg/dL (9-16); Calcium 9.6 mg/dL (8.4-10.2); Carbon Dioxide 31 mmol/L (22-29); Chloride 103 mmol/L (96-108); Creatinine Clr Calc Pharmacy 92.9; Estimated Glomerular Filt Rate > 60; Ethanol < 10 mg/dL; Glucose Random 93 mg/dL (60-115); Potassium 4.7 mmol/L (3.3-5.1); Salicylate < 5.0 mg/dL (15-30); Sodium 141 mmol/L (135-145)
--- NOTE | 2022-03-14 13:24 | MHC.CARE ---
CARE Team eval completed. Dispo pending pysch consult
--- NOTE | 2022-03-14 13:48 | MHC.CARE ---
Care Team had a telephonic encounter with CORTNEY Herrmann and placed pt on crisis alert.
== END 2022-03-14 14:40 | disposition home or self-care (01) ==
PROVIDERS: Physician Assistant Medical; Emergency Provider Student in an Organized Health Care Education/Training Program; PCP Internal Medicine
DX: F33.1 Major depressive disorder, recurrent, moderate (principal); R45.851 Suicidal ideations; R05.9 Cough, unspecified; F41.9 Anxiety disorder, unspecified; F43.10 Post-traumatic stress disorder, unspecified; F14.10 Cocaine abuse, uncomplicated; Z79.899 Other long term (current) drug therapy; F17.210 Nicotine dependence, cigarettes, uncomplicated; Z20.822 Contact with and (suspected) exposure to COVID-19
CPT/HCPCS: 36415; 71045; 80053; 80143; 80179; 82077; 85025; 87635; 99284